=== PATIENT | male | born 1950 | race Two or more races ===

== ENCOUNTER 2025-04-26 19:59 | Emergency (ER) | payer OTHER, MEDICAID, SELFPAY ==
[2025-04-26 21:04] VITALS: BP 175/81; PULSE 65; RESP 20; TEMP 36.8; O2SAT 96; BMI 44.4
--- NOTE | 2025-04-26 21:04 | XR_ITS ---
Examination: CT brain head without contrast. 2-D sagittal coronal reconstructions Date and time of exam: April 26, 2025, 2115 hours, comparison August 31, 2006 INDICATIONS: High blood pressure head pain today CTDI: vol (mGy): 56.2 DLP: (mGycm): 1210 Technique: Multiple CT axial sections of the brain have been obtained, 5 mm slice thickness. Contrast has not been administered. 2-D sagittal, coronal reconstructions have been obtained Low dose protocols were performed. One or more of the following dose reduction techniques were used; automated exposure control, adjustment of the mA and/or KV according to patient size, use of iterative reconstruction technique. Findings: No significant ventricular enlargement. Intra-axial or extra-axial hemorrhage density is not seen. No mass effect or midline shift Basal cisterns are not remarkable. Fourth ventricle is midline. Cranial vault intact. Bilateral chronic mastoiditis Right otitis externa Left otitis media Impression: Negative for acute hemorrhage, mass effect or midline shift Bilateral chronic mastoiditis Left otitis media
--- NOTE | 2025-04-26 21:04 | EKG_ITS ---
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
--- NOTE | 2025-04-26 21:05 | PD.EDRME ---
Rapid Medical Screening Exam RME Arrival date/time: 04/26/25 19:59 This is a case of 74-year-old male with history of hypertension came in in the emergency room due to high BP at home ranging 200/120 with headache and tinnitus worsening of the symptoms this patient decided to sought consult in the emergency room Chief Complaint: General Adult/Misc Complain Time Seen by Provider: 04/26/25 20:28 Vital signs: Vital Signs Temperature 98.2 F 04/26/25 21:04 Pulse Rate 65 04/26/25 21:04 Respiratory Rate 20 04/26/25 21:04 Blood Pressure 175/81 H 04/26/25 21:04 Pulse Oximetry (%) 96 04/26/25 21:04 Oxygen Delivery Method Room Air 04/26/25 21:04 Exam: Heart normal rate regular rhythm no murmur clear breath sound neurological exam is normal awake alert oriented x 4 no focal deficit GCS 15/15 steady gait Clinical Impression: Uncontrolled hypertension tinnitus headache
--- NOTE | 2025-04-26 21:18 | PC.NURSE ---
CALLED FOR MEDS NA
[2025-04-26 21:24] VITALS: BP 194/90; PULSE 65
[2025-04-26 21:49] LABS: Basophils # (Auto) 0.0 Thou/mm3 (0.0-0.2); Basophils % (Auto) 1 % (0-2.5); Eosinophils # (Auto) 0.1 Thou/mm3 (0.0-0.5); Eosinophils % (Auto) 3 % (0-10); Hematocrit 41.6 % (41.0-53.0); Hemoglobin 13.4 g/dL (13.5-16.0); Immature Granulocytes Auto 0.01 Thou/mm3 (0.00-0.00); Lymphocytes # (Auto) 1.4 Thou/mm3 (1.0-4.8); Lymphocytes % (Auto) 26 % (10-50); Mean Corpuscular HGB Conc 32.2 g/dl (31.0-37.0); Mean Corpuscular Hemoglobin 30.7 pg (25.0-35.0); Mean Corpuscular Volume 95 fL (80-100); Monocytes # (Auto) 0.4 Thou/mm3 (0.0-0.8); Monocytes % (Auto) 7 % (0-12); Neutrophils # (Auto) 3.6 Thou/mm3 (1.8-7.7); Neutrophils % (Auto) 64 % (37-80); Nucleated Red Blood Cell # 0.00 Thou/mm3 (0.00-0.00); Nucleated Red Blood Cell % 0 /100 WBC (0); Platelet Count 125 Thou/mm3 (140-440); RDW Standard Deviation 48.9 fL (35.1-43.9); Red Blood Count 4.37 Miln/mm3 (4.50-5.90); White Blood Count 5.6 Thou/mm3 (3.8-10.6)
[2025-04-26 21:58] LABS: Collection Type, Urine Voided
[2025-04-26 22:03] LABS: Bilirubin,Urine Negative (Negative); Blood,Urine Negative (Negative); Clarity,Urine Clear (Clear/Hazy); Color,Urine Lt-Yellow (Lt Yel-Yel); Glucose, Urine 2+ (Negative); Ketones,Urine Negative (Negative); Leukocyte Esterase,Urine Negative (Negative); Nitrite,Urine Negative (Negative); PH,Urine 6.5 (5.0-7.0); Protein,Urine 2+ (Neg - Trace); RBC,Urine 2 /hpf (0-3); Specific Gravity,Urine 1.022 (1.001-1.035); Squamous Epithelial Cell,Urine < 1 /hpf (0-5); Urobilinogen,Urine Negative mg/dL (0.0-1.0); WBC,Urine 1 /hpf (0-5)
[2025-04-26 22:04] LABS: Alanine Aminotransferase 17 U/L (10-49); Albumin, Serum 4.7 gm/dL (3.4-4.8); Albumin/Globulin Ratio 2.0 (1.2-2.2); Alkaline Phosphatase 144 U/L (46-116); Anion Gap 8 (7-16); Aspartate Amino Transferase 19 U/L (0-34); BUN/Creatinine Ratio 16 Ratio (12-20); Bilirubin,Total 0.4 mg/dL (0.3-1.2); Blood Urea Nitrogen 18 mg/dL (9-23); Calcium 10.0 mg/dL (8.3-10.6); Calcium (Corrected) 10.0 mg/dL (8.5-10.1); Carbon Dioxide 29.6 mMol/L (20.0-31.0); Chloride 105 mMol/L (98-107); Creatinine (Component) 1.1 mg/dL (0.6-1.3); Estimated Creatinine Clearance 68.8 mL/min (>60); Globulin 2.3 gm/dL (2.3-3.5); Glucose 188 mg/dL (74-106); Osmolality,Calculated 291 (275-295); Potassium 4.5 mMol/L (3.4-5.1); Sodium 143 mMol/L (136-145); Total Protein 7.0 gm/dL (5.7-8.2); Troponin I 0.022 ng/mL (0.0-0.045); eGFR > 60 See Note
[2025-04-26 22:25] VITALS: BP 170/77; PULSE 71; RESP 18; TEMP 36.7; O2SAT 96
--- NOTE | 2025-04-26 23:11 | EDNOTE_ITS ---
ED General RME/HPI General Chief complaint: General Adult/Misc Complain Stated complaint: HIGH BLOOD PRESSURE Time Seen by Provider: 04/26/25 20:28 Arrival date/time: 04/26/25 19:59 RME / HPI RME / HPI narrative: 04/26/25 19:59 CC: high blood pressure at home Patient is a 74-year-old male hyperlipidemia, hypertension, diabetes mellitus type 2 on Ozempic who presented to the emergency room via private vehicle with a chief complaint of systolic blood pressure of 200. Patient denied vision changes. Patient denied global events. Patient denied sick contacts. Recent visit to his primary doctor for ear lavage. Denied fall or trauma to head. Lisinopril 40 mg once daily. Patient did mention some external ear pain several days ago. Related Data Previous Rx's ?Medication ?Instructions ?Recorded amoxicillin 875 mg-potassium 1 tab PO BID Otitis Media 5 days 04/26/25 clavulanate 125 mg tablet #10 tabs Allergies Allergy/AdvReac Type Severity Reaction Status Date / Time No Known Allergies Allergy Verified 04/26/25 20:01 Review of Systems Review of Systems Narrative Review of Systems: General appearance: NO weight change, NO fatigue, NO weakness, NO fever, NO chills, NO night sweats, No cough Skin: NO rash, NO itching, NO sores, NO moles HEENT: NO Trauma, NO nausea, NO vomiting, NO visual changes, NO blurry vision, NO double vision, NO tinnitus, NO vertigo, NO ear discharge, NO rhinorrhea, NO stuffiness, NO sneezing, NO allergy, NO epistaxis. NO Hoarseness, NO sore throat, NO swollen neck.*head several days ago w/ some external ear pain. Cardiac: NO Palpitations, NO dyspnea on exertion, NO orthopnea, NO paroxysmal nocturnal dyspnea, NO edema Respiratory: NO Shortness of Breath, NO Wheezing, NO Cough, NO Sputum, NO hemoptysis GI:NO appetite, NO nausea, NO vomiting, NO dysphagia, NO changes in bowel frequency, NO stool color, NO diarrhea, NO constipation, NO hemetemesis, NO hemorrhoids, NO melena, NO hematechezia, NO abdominal pain, NO jaundice Renal: NO frequency, NO hesitancy, NO urgency, NO hematuria, NO nocturia, NO incontinence MSK: NO muscle weakness, NO gout, NO arthritis, NO muscle stiffness Neuro: NO headaches, NO tremors, NO weakness, NO paralysis, NO seizures, NO loss of consciousness, NO numbness. Hem: NO anemia, NO easy bruising/bleeding, NO petechiae, NO purpura Endo: NO heat/cold intolerance, NO excessive sweating, NO polyuria, NO polydipsia, NO polyphagia, NO thyroid problems, NO diabetes Pysch: NO mood, NO anxiety, NO depression ED Exam Narrative Physical exam: General Appearance: Alert & Oriented X3, well-nourished male who is lying in bed in no acute distress HEENT: Skull symmetrical and atraumatic. Conjunctivae pin and moist. Pupils equal, round, reactive to light and accommodation (PERRL). External ear without lesion or discharge. Straight, nares patient, mucosa pink, no discharge. Cardio: Normal Rate and Rhythm with S1 and S2 heart sounds. No murmurs or extra heart sounds auscultated. No bruits on carotid auscultation. No peripheral edema or cyanosis. Lungs: Symmetric with good expansion. Chest and back non-tender. Breath sounds vesicular without crackles, wheezing or rhonchi Abdomen: Non-tender, Non-distended, Normal Reactive Bowel Sounds Neuro: Alert, cooperative, oriented to person, place, and time. Speech clear. CN grossly intact. Upper motor strength 5/5 and Lower motor strength 5/5. Sensation intact. Course Course Course Narrative: CBC CMP Tropnoin EKG UA Quality Measures none Orders Category Date Time Status EKG (ED ONLY) *Do not use* NOW Care 04/26/25 21:[address] head/brain wo con Stat Exams 04/26/25 21:04 Completed EKG (ED Only) Stat Exams 04/26/25 21:04 Draft CBC Stat Lab 04/26/25 21:28 Completed CMP [Comprehensive Metabolic Panel] Stat Lab 04/26/25 21:28 Completed Troponin I Stat Lab 04/26/25 21:28 Completed Urinalysis Stat Lab 04/26/25 21:43 Completed cloNIDine HCL [Catapres] Med 04/26/25 21:04 Discontinued 0.2 mg PO X1 ONE Vital Signs Vital signs: Vital Signs Temperature 98.2 F 04/26/25 21:04 Pulse Rate 65 04/26/25 21:04 Respiratory Rate 20 04/26/25 21:04 Blood Pressure 175/81 H 04/26/25 21:04 Pulse Oximetry (%) 96 04/26/25 21:04 Oxygen Delivery Method Room Air 04/26/25 21:04 Discharge Plan Plan Patient Disposition: HOME (Self Care) Patient condition on transfer: Stable Health Concerns: Instructions: -You have been diagnosed with uncontrolled hypertension. Please take your anti- hypertensive medication as scheduled. Please follow up with your primary care provider and have him adjust your Lisinopril as needed. -Follow up with your primary doctor within one week of being discharged form emergency room. -You have a left ear infection as noted on your CT head. Please take Amoxicillin-Clavulanate 875 mg for the next 5 days. -Please follow up with your primary care provider within one week of discharge -If your symptoms worsen,please seek immediate medical attention and return to your nearest emergency room -If you do not have a primary care provider, you may follow up at the [facility] at [address] [place] [address] [address], [place] [address], Prescriptions/Referrals Prescriptions/Med Rec: New amoxicillin-pot clavulanate 875-125 mg tablet 1 tab PO BID 5 Days Qty: 10 0RF Problem List Clinical Impression: Hypertension, uncontrolled, Otitis media Patient/Caregiver Discharge Instructions Education Materials: ED High Blood Pressure ..., ED Otitis Media Antibiotic ... Print Language: Egyptian Stand Alone Forms: [employer] Award Info., Patient Portal Info Letter MDM Chronic Illness/Social Conditions Explain: HTN HLD Diabetes Mellitus Type 2 Labs Lab(s) Interpretation(s): No Leukocytotsis. Anemia. electrolytes within normal limits. No SUMAN noted. Imaging Imaging Interpretation(s): CT head negative for acute bleeding. Bialteral chronic mastoiditis. left otitis media. Medication Administration(s) none Medication Administration History Discontinued Medications Clonidine (Clonidine Hcl 0.1 Mg Tablet) 0.2 mg PO X1 ONE Stop: 04/26/25 21:05 Last Admin: 04/26/25 21:24 Dose: 0.2 mg Documented By: CHARLES same as above Diagnosis Differential Diagnosis ED Complaint MDM: uncontrolled high blood pressure vs otitis media vs ACS Diagnoses ruled out and/or further discussions: Patient is 74-year-old male with a past medical history of hyperlipidemia, hypertension, diabetes mellitus type 2 who presented with uncontrolled hypertension. Uncontrolled hypertension upon arrival of 194/90 was reduced by 15% and systolic blood pressure 170 after clonidine was administered. CT head negative, no acute hemorrhage or mass effect. Bilateral chronic mastoiditis noted. Left otitis media. Patient was prescribed amoxicillin clodronate for [address] elevations noted on EKG. Troponin within normal limits. Denies chest pain. No leukocytosis mild anemia electrolytes within normal limits. #Uncontrolled HTN #Left otitis media - The patient's plan was discussed with attending Dr. Jose Stone MD PGY2 Internal Medicine
--- NOTE | 2025-04-26 23:25 | PC.NURSE ---
has seen pt. clayton resting quietly, family at bedside. awaiting orders
[2025-04-26 23:26] VITALS: BP 170/77; PULSE 60; RESP 19; O2SAT 97
== END 2025-04-26 23:27 | disposition home or self-care (01) ==
LOC: SERX 23:35
PROVIDERS: Nurse Practitioner Family; Emergency Provider Emergency Medicine
DX: I10 Essential (primary) hypertension (principal); H66.92 Otitis media, unspecified, left ear; I49.3 Ventricular premature depolarization
CPT/HCPCS: 36415; 70450; 80053; 81001; 84484; 85025; 93005; 99283; A9270

== ENCOUNTER 2025-05-04 14:04 | Inpatient (IN) | payer OTHER, MEDICAID, MEDICARE, SELFPAY ==
--- NOTE | 2025-05-04 14:25 | EKG_ITS ---
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
[2025-05-04 14:47] VITALS: BP 153/75; PULSE 80; RESP 19; TEMP 37.2; O2SAT 99
--- NOTE | 2025-05-04 14:59 | PD.EDCHEST ---
ED Chest Pain RME/HPI General Chief Complaint: General Adult/Misc Complain Stated Complaint: HIGH BP, TIGHTNESS IN NECK/CHEST Time Seen by Provider: 05/04/25 14:29 Arrival date/time: 05/04/25 14:04 Limitations: no limitations RME / HPI RME / HPI narrative: DR. JACY GALLEGO ED EVALUATION: 74-year-old male presents to the Emergency Department with chest pain and sore throat. He describes the chest pain as a pressure-like sensation. No fever, chills, nausea, vomiting, or shortness of breath reported. No other complaints. Past medical history includes hyperlipidemia, hypertension, and type 2 diabetes mellitus, for which he is on Ozempic. He also takes clopidogrel. He reports a history of an artery that was previously blocked and opened during a heart procedure in [place]. Related Data Home Medications ?Medication ?Instructions ?Recorded ?Confirmed amlodipine 10 mg tablet 10 mg PO .od 05/04/25 05/04/25 aspirin 81 mg tablet,delayed 81 mg PO QDAY 05/04/25 05/04/25 release atorvastatin 40 mg tablet 40 mg PO QDAY 05/04/25 05/04/25 clopidogrel 75 mg tablet 75 mg PO QDAY 05/04/25 05/04/25 furosemide 20 mg tablet 20 mg PO QDAY 05/04/25 05/04/25 lisinopril 40 mg tablet 40 mg PO QDAY 05/04/25 05/04/25 Allergies Allergy/AdvReac Type Severity Reaction Status Date / Time No Known Allergies Allergy Verified 05/04/25 14:07 Review of Systems Review of Systems Systems Reviewed: All systems reviewed, normal except as documented Past Medical History Past Medical History CARDIAC: Positive Hypertension Social History SMOKING STATUS: Never smoker SUBSTANCE USE: does not use ALCOHOL: Never ED Exam General Limitations: Present no limitations General appearance: Present alert and in no apparent distress Head Head exam: Present atraumatic, normocephalic and normal inspection Eye Eye exam: Present normal appearance, PERRL and EOMI ENT ENT exam: Present normal exam, normal oropharynx and mucous membranes moist Neck Neck exam: Present normal inspection, full ROM and trachea midline Chest Chest inspection: Present normal inspection and symmetric chest wall rise Respiratory Respiratory exam: Present normal lung sounds bilaterally Cardiovascular Cardiovascular exam: Present regular rate, normal rhythm and normal heart sounds Abdominal Exam Abdominal exam: Present soft; Absent distention, tenderness, guarding or rebound Extremities Exam Extremities exam: Present normal inspection and full ROM Neurological Exam Neurological exam: Present alert, oriented X3 and other (No focal neurodeficits) Psychiatric Psychiatric exam: Present normal affect and normal mood Skin Skin exam: Present warm, dry, intact and normal color Course Quality Measures none Orders Category Date Time Status Admit to Inpatient Status Routine Admission 05/04/25 17:37 Active Patient Condition Routine Admission 05/04/25 17:37 Ordered Activity as Tolerated Routine Care 05/04/25 17:40 Ordered Continuous Pulse Oximetry NOW Care 05/04/25 17:37 Active EKG (ED ONLY) *Do not use* NOW Care 05/04/25 14:25 Completed NPO after Midnight ONCE Care 05/04/25 17:49 Active Notify provider NEEDED Care 05/04/25 17:37 Active Notify provider NOW Care 05/04/25 16:22 Active Obtain weight daily Care 05/04/25 17:40 Active Strict Intake and Output Routine Care 05/04/25 17:39 Ordered Consult to Cardiology Stat Cons 05/04/25 17:30 Ordered Diet Cardiac Diet 05/04/25 Dinner Completed Diet NPO after Midnight Diet 05/05/25 00:01 Active CA echo doppler complete Stat Exams 05/04/25 17:28 Ordered CXR [XR chest 1V] Stat Exams 05/04/25 15:25 Completed EKG (ED Only) Stat Exams 05/04/25 14:25 Draft BNP [B-Type Natriuretic Peptide] Stat Lab 05/04/25 15:00 Completed CBC AM DRAW Lab 05/05/25 04:38 Completed CBC AM DRAW Lab 05/06/25 05:00 Ordered CBC AM DRAW Lab 05/07/25 05:00 Ordered CBC Stat Lab 05/04/25 15:00 Completed CMP [Comprehensive Metabolic Panel] Stat Lab 05/04/25 15:00 Completed Comprehensive Metabolic Panel AM DRAW Lab 05/05/25 04:38 Completed Lipase Stat Lab 05/04/25 15:00 Completed Lipid Panel AM DRAW Lab 05/05/25 04:38 Completed Lipid Panel AM DRAW Lab 05/06/25 05:00 Ordered Lipid Panel AM DRAW Lab 05/07/25 05:00 Ordered Magnesium AM DRAW Lab 05/05/25 04:38 Completed Magnesium AM DRAW Lab 05/06/25 05:00 Ordered Magnesium AM DRAW Lab 05/07/25 05:00 Ordered PTT [Partial Thromboplastin Time] Stat Lab 05/04/25 15:00 Completed Partial Thromboplastin Time AM DRAW Lab 05/06/25 05:00 Ordered Phosphorous AM DRAW Lab 05/05/25 04:38 Completed Phosphorous AM DRAW Lab 05/06/25 05:00 Ordered Phosphorous AM DRAW Lab 05/07/25 05:00 Ordered Prothrombin Time with INR AM DRAW Lab 05/06/25 05:00 Ordered Thyroid Stimulating Hormone AM DRAW Lab 05/05/25 04:38 Completed Troponin I Q6H Lab 05/04/25 23:45 Completed Troponin I Stat Lab 05/04/25 15:00 Completed Troponin I Stat Lab 05/04/25 17:49 Completed Acetaminophen Tab [Tylenol Tab] Med 05/04/25 17:37 Active 650 mg PO Q6H PRN Acetaminophen Tab [Tylenol Tab] Med 05/04/25 17:37 Active 650 mg PO Q6H PRN Aspirin Chew Med 05/04/25 17:31 Discontinued 243 mg PO X1 ONE Aspirin [Ecotrin] Med 05/04/25 15:25 Discontinued 81 mg PO X1 ONE Atorvastatin Calcium [Lipitor] Med 05/04/25 17:36 Discontinued 80 mg PO X1 ONE Clopidogrel [Plavix] Med 05/04/25 17:28 Discontinued 300 mg PO X1 ONE HYDROcodone/APAP 10/325 [[place] 10/325] Med 05/04/25 17:37 Hold 1 tab PO Q4H PRN Heparin Inj Med 05/04/25 17:15 Discontinued 4,000 unit IV X1 ONE Heparin/D5w 25K 250 ML Ivpb [Heparin in D5w Ivpb] Med 05/04/25 17:00 Active 25,000 unit in 250 ml IV 8.351 units/kg/hr Metoprolol Succinate Xl [Toprol Xl] Med 05/04/25 17:35 Discontinued 25 mg PO X1 ONE Nitroglycerin [Nitrostat 1/150] Med 05/04/25 17:43 Active 0.4 mg SL Q5MIN PRN Code Status Routine Oth 05/04/25 17:37 Ordered O2 [Oxygen Delivery] PRN RT 05/04/25 17:43 Active Vital Signs Vital signs: Vital Signs Temperature 98.9 F 05/04/25 14:47 Pulse Rate 80 05/04/25 14:47 Respiratory Rate 19 05/04/25 14:47 Blood Pressure 153/75 H 05/04/25 14:47 Pulse Oximetry (%) 99 05/04/25 14:47 Oxygen Delivery Method Room Air 05/04/25 14:47 Chest Pain MDM Narrative MDM Narrative:: I, Michelle Leon, am scribing for and in the presence of Dr. Pike. 74-year-old male with pressure-like chest pain and sore throat with cardiac history including prior coronary intervention. Vital signs and exam as listed. Concern for ACS arrhythmia electrolyte abnormality viral syndrome pneumonia heart failure among others. Ordered labs EKG chest x-ray. Provided patient with medication for symptom relief. My interpretation: EKG performed at 1433 hours, sinus rhythm, rate 72, ST depression in lead 2, AVF, and V2-V6, not a STEMI 1524: Discussed test HPI, PMHx, lab, radiology results and/or management with real estate broker associate Dr. Joseph. He states the patient is not a cardiac alert. 4:20p called on-call real estate broker associate Dr. Temple to let her know that patient's troponin is 0.51. Agrees with starting heparin will consult. 1635: Discussed test HPI, PMHx, lab, radiology results and/or management with resident working with the hospitalist. Will admit for further evaluation and management. Accepts patient for admission. Updated patient, in agreement with treatment plan. Total critical care time: Approximately?36?minutes Due to a high probability of clinically significant, life threatening deterioration, the patient required my highest level of preparedness to intervene emergently and I personally spent this critical care time directly and personally managing the patient. This critical care time included obtaining a history; examining the patient; pulse oximetry; ordering and review of studies; arranging urgent treatment with development of a management plan; evaluation of patient's response to treatment; frequent reassessment; and, discussions with other providers. This critical care time was performed to assess and manage the high probability of imminent, life-threatening deterioration that could result in multi-organ failure. It was exclusive of separately billable procedures and treating other patients and teaching time. Please see MDM section and the rest of the note for further information on patient assessment and treatment. Patient data External records reviewed:: [facility] previous records Clinical information provided by:: patient and spouse Social determinants that could affect healthcare access:: none Patient has the following chronic illnesses:: Past medical history includes hyperlipidemia, hypertension, and type 2 diabetes mellitus, for which he is on Ozempic. He also takes clopidogrel. He reports a history of an artery that was previously blocked and opened during a heart procedure in [place]. How is presenting disease/condition affected by chronic disease/condition?: exacerbated by Evaluation data The following diagnostics were reviewed and interpreted by me:: lab results, radiology exam(s) and EKG tracing(s) (My interpretation: EKG performed at 1433 hours, sinus rhythm, rate 72, ST depression in lead 2, AVF, and V2-V6, not a STEMI) Lab and/or radiology exams considered but not ordered:: none Interpretation Summary: See MDM narrative above. RADIOLOGY Procedure(s): XR chest 1V Accession Number(s): [id number] cc: Neil Rainey MD; Mikael Stubbs MD; Sara Pike MD~ EXAMINATION: AP chest single view TECHNIQUE: AP portable semiupright chest single view Date and time: May 04, 2025, 1537 hours, comparison September 28, 2011. INDICATIONS: Shortness of breath chest pain today. FINDINGS: Mild to moderate enlargement cardiac contour. Mild vascular congestion No rufus pulmonary edema No lobar pneumonia 7 mm pulmonary nodule in the left midlung IMPRESSION: Mild to moderate enlargement cardiac contour Mild vascular congestion Recommend AP lordotic chest to assess 7 mm pulmonary nodule in the left midline Dictated By: Mikael Stubbs MD Medications / Prescriptions Medications or Prescriptions considered but not ordered:: none Medication administrations:: Medication Administration History Acetaminophen (Acetaminophen 325 Mg Tablet) 650 mg PO Q6H PRN PRN Reason: Fever >101.5 Stop: 06/03/25 17:36 Acetaminophen (Acetaminophen 325 Mg Tablet) 650 mg PO Q6H PRN PRN Reason: PAIN SCALE 1-3 (mild Stop: 06/03/25 17:36 Hydrocodone Bitart/Acetaminophen (Hydrocodone/Apap 10/325 Tab) 1 tab PO Q4H PRN On Hold: 05/04/25 18:11 PRN Reason: PAIN SCALE 4-10(Mod-Sev Stop: 05/09/25 17:36 Hydrocodone Bitart/Acetaminophen (Hydrocodone/Apap 5/325 Tablet) 1 tab PO Q6HR PRN PRN Reason: PAIN SCALE 4-10(Mod-Sev Stop: 05/09/25 18:10 Aspirin (Aspirin Ec 81 Mg Tabec) 81 mg PO QDAY EAN Stop: 06/04/25 08:59 Last Admin: 05/05/25 07:56 Dose: 81 mg Documented By: CP Clopidogrel Bisulfate (Clopidogrel Bisulfate 75 Mg Tablet) 75 mg PO QDAY [facility] Stop: 06/04/25 08:59 Last Admin: 05/05/25 07:56 Dose: 75 mg Documented By: LUIS Dextrose (Dextrose 50%-Water Inj 50 Ml Syringe) 25 ml IV Q15MIN PRN PRN Reason: BG 50-70 responsive npo pt Stop: 06/03/25 20:47 Dextrose (Dextrose 50%-Water Inj 50 Ml Syringe) 50 ml IV Q15MIN PRN PRN Reason: BG <50 OR BG <70 & pt unresponsive Stop: 06/03/25 20:47 Glucagon (Glucagon Inj 1 Mg Vial) 1 mg IM Q15MIN PRN PRN Reason: BG <70, and no IV access Heparin Sodium/Dextrose (Heparin In D5w Ivpb) 25,000 unit in 250 mls @ 10 mls/hr IV .Q24H [facility]; Protocol Stop: 05/18/25 16:59 Last Titration: 05/05/25 01:14 Dose: 8.35 units/kg/hr, 10 mls/hr Documented By: RC Co-signed By: WO Admin: 05/04/25 17:36 Dose: 8.351 units/kg/hr, 10 mls/hr Documented By: TM Co-signed By: SM Insulin Human Lispro (Insulin Lispro (Admelog) 1 Unit/0.01 Ml Unit) 0 unit SC AC [facility]; Protocol Stop: 06/04/25 07:29 Last Admin: 05/05/25 07:55 Dose: 2 unit Documented By: LUIS Co-signed By: Nitroglycerin (Nitroglycerin 0.4 Mg Subl Btl #25) 0.4 mg SL Q5MIN PRN PRN Reason: CHEST PAIN Discontinued Medications Aspirin (Aspirin Ec 81 Mg Tabec) 81 mg PO X1 ONE Stop: 05/04/25 15:26 Last Admin: 05/04/25 15:40 Dose: 81 mg Documented By: TM Aspirin (Aspirin 81 Mg Chew) 243 mg PO X1 ONE Stop: 05/04/25 17:32 Last Admin: 05/04/25 18:32 Dose: Not Given Documented By: TM Non-Admin Reason: Patient Refused Aspirin (Aspirin Ec 81 Mg Tabec) 81 mg PO QDAY EAN Stop: 06/04/25 08:59 Atorvastatin Calcium (Atorvastatin Calcium 20 Mg Tablet) 80 mg PO X1 ONE Stop: 05/04/25 17:37 Last Admin: 05/04/25 18:32 Dose: Not Given Documented By: TM Non-Admin Reason: Patient Refused Clopidogrel Bisulfate (Clopidogrel Bisulfate 75 Mg Tablet) 300 mg PO X1 ONE Stop: 05/04/25 17:29 Last Admin: 05/04/25 18:32 Dose: Not Given Documented By: TM Non-Admin Reason: Patient Refused Heparin Sodium (Porcine) (Heparin Sod Inj 5000 Unit/Ml Vial) 4,000 unit IV X1 ONE; Protocol Stop: 05/04/25 17:16 Last Admin: 05/04/25 17:35 Dose: 4,000 unit Documented By: RACIEL Co-signed By: ESTIVEN Metoprolol Succinate (Metoprolol Succinate Xl 25 Mg Tabcr) 25 mg PO X1 ONE Stop: 05/04/25 17:36 Last Admin: 05/04/25 18:32 Dose: Not Given Documented By: TM Non-Admin Reason: Patient Refused see above Consultations Consultation(s) initiated? (list below): Yes Consultation #1 (Physician, Specialty, Details): Discussed test HPI, PMHx, lab, radiology results and/or management with real estate broker associate Dr. Joseph. He states the patient is not a cardiac alert. Time: 15:24 Consultation #2 (Physician, Specialty, Details): Discussed test HPI, PMHx, lab, radiology results and/or management with resident working with the hospitalist. Will admit for further evaluation and management. Accepts patient for admission. Time: 16:35 Diagnosis Chest Pain Differential Diagnosis: other (ACS, GERD, and viral pharyngitis) Most likely diagnosis given after review of the tests above:: NSTEMI Chest pain Admission Indicated Admission indicated?: indicated Admission Request Was there a request for admission?: Yes Admission Attestation Admission request attestation: Discussed case with [] from Hospitalist service regarding admission. Discussed patients ED course, exam findings, labs, and radiology results. The Hospitalist [agrees,declines] to accept the patient for admission. Disposition Plan Disposition Plan: Admit Discharge Plan Plan Patient Disposition: Admit Acute Care w/in Hospital Problem List Clinical Impression: NSTEMI (non-ST elevation myocardial infarction), Chest pain
[2025-05-04 15:01] VITALS: BMI 35.8
--- NOTE | 2025-05-04 15:25 | XR_ITS ---
EXAMINATION: AP chest single view TECHNIQUE: AP portable semiupright chest single view Date and time: May 04, 2025, 1537 hours, comparison September 28, 2011. INDICATIONS: Shortness of breath chest pain today. FINDINGS: Mild to moderate enlargement cardiac contour. Mild vascular congestion No rufus pulmonary edema No lobar pneumonia 7 mm pulmonary nodule in the left midlung IMPRESSION: Mild to moderate enlargement cardiac contour Mild vascular congestion Recommend AP lordotic chest to assess 7 mm pulmonary nodule in the left midline
[2025-05-04] MEDS: ASPIRIN EC 81 MG TABEC PO (15:40)
[2025-05-04 15:53] LABS: Basophils # (Auto) 0.0 Thou/mm3 (0.0-0.2); Basophils % (Auto) 1 % (0-2.5); Eosinophils # (Auto) 0.1 Thou/mm3 (0.0-0.5); Eosinophils % (Auto) 2 % (0-10); Hematocrit 40.4 % (41.0-53.0); Hemoglobin 13.2 g/dL (13.5-16.0); Immature Granulocytes Auto 0.02 Thou/mm3 (0.00-0.00); Lymphocytes # (Auto) 1.2 Thou/mm3 (1.0-4.8); Lymphocytes % (Auto) 18 % (10-50); Mean Corpuscular HGB Conc 32.7 g/dl (31.0-37.0); Mean Corpuscular Hemoglobin 30.3 pg (25.0-35.0); Mean Corpuscular Volume 93 fL (80-100); Monocytes # (Auto) 0.4 Thou/mm3 (0.0-0.8); Monocytes % (Auto) 6 % (0-12); Neutrophils # (Auto) 4.6 Thou/mm3 (1.8-7.7); Neutrophils % (Auto) 73 % (37-80); Nucleated Red Blood Cell # 0.00 Thou/mm3 (0.00-0.00); Nucleated Red Blood Cell % 0 /100 WBC (0); Platelet Count 112 Thou/mm3 (140-440); RDW Standard Deviation 47.8 fL (35.1-43.9); Red Blood Count 4.36 Miln/mm3 (4.50-5.90); White Blood Count 6.3 Thou/mm3 (3.8-10.6)
[2025-05-04 16:12] VITALS: BP 154/65; PULSE 78; RESP 14; TEMP 36.3; O2SAT 98
[2025-05-04 16:17] LABS: B-Type Natriuretic Peptide 173 pg/mL (0-100)
[2025-05-04 16:19] LABS: Alanine Aminotransferase 17 U/L (10-49); Albumin, Serum 4.9 gm/dL (3.4-4.8); Albumin/Globulin Ratio 2.2 (1.2-2.2); Alkaline Phosphatase 154 U/L (46-116); Anion Gap 9 (7-16); Aspartate Amino Transferase 25 U/L (0-34); BUN/Creatinine Ratio 15 Ratio (12-20); Bilirubin,Total 0.5 mg/dL (0.3-1.2); Blood Urea Nitrogen 17 mg/dL (9-23); Calcium 9.7 mg/dL (8.3-10.6); Calcium (Corrected) 9.7 mg/dL (8.5-10.1); Carbon Dioxide 27.6 mMol/L (20.0-31.0); Chloride 103 mMol/L (98-107); Creatinine (Component) 1.1 mg/dL (0.6-1.3); Estimated Creatinine Clearance 78.7 mL/min (>60); Globulin 2.2 gm/dL (2.3-3.5); Glucose 252 mg/dL (74-106); Lipase 40 U/L (12-53); Osmolality,Calculated 289 (275-295); Potassium 4.5 mMol/L (3.4-5.1); Sodium 140 mMol/L (136-145); Total Protein 7.1 gm/dL (5.7-8.2); eGFR > 60 See Note
[2025-05-04 16:21] LABS: Troponin I 0.510 ng/mL (0.0-0.045)
[2025-05-04 16:58] LABS: Partial Thromboplastin Time 30.7 Seconds (22.0-36.0)
--- NOTE | 2025-05-04 17:28 | ECHO_ITS ---
Patient Info Name: Murali Park Age: 74 years : 1950 Gender: Male Ht: 183 cm Wt: 120 kg BSA: 2.51 m2 BP: 130 / 70 mmHg HR: 64 bpm Exam Date: 05/05/2025 8:47 AM Admit Date: 05/04/2025 Site: 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 Material: Lisa Vasquez Ordering Physician: Joann Beyer Study Info Indications NSTEMI - Primary Location: S2NX Left Ventricular Outflow Tract Name Value Normal LVOT 2D LVOT Diameter 1.6 cm LVOT Doppler LVOT Peak Velocity 101 cm/s LVOT Mean Gradient 2 mmHg LVOT VTI 23 cm LVOT VTI/AV VTI Ratio 0.8 LVOT Stroke Volume 47 ml Pulmonic Valve Name Value Normal PV Doppler PV Peak Velocity 99 cm/s Mitral Valve Name Value Normal MV Doppler MV Decel Power 321 cm/s2 MV PHT 48 ms MV Area (PHT) 4.6 cm2 4.0-5.0 MV Diastolic Function MV E Peak Velocity 53 cm/s MV A Peak Velocity 70 cm/s MV E/A 0.8 MV Annular TDI MV Septal e' Velocity 3.9 cm/s MV E/e' (Septal) 13.5 MV Lateral e' Velocity 5.0 cm/s MV E/e' (Lateral) 10.6 MV e' Average 4.46 cm/s MV E/e' (Average) 12.1 Tricuspid Valve Name Value Normal Estimated PAP/RSVP RA Pressure 8 mmHg <=5 TV Annular TDI TV Lateral Yamini s' Velocity 14.1 cm/s >=9.5 Aortic Valve Name Value Normal AV 2D/MM AV Cusp Sep (MM) 1.8 cm AV Doppler AV Peak Velocity 144 cm/s AV Mean Gradient 4 mmHg AV VTI 30 cm AV Area (Cont Eq VTI) 1.6 cm2 >=3.0 AV Area (Cont Eq Peter) 1.4 cm2 AV DI (Peter) 0.70 AV Regurgitation 2D LVOT Area 2.0 cm2 Ventricles Name Value Normal LV Dimensions 2D/MM IVS Diastolic Thickness (2D) 1.1 cm 0.6-1.0 LVID Diastole (2D) 5.2 cm 4.2-5.8 LVIW Diastolic Thickness (2D) 1.1 cm 0.6-1.0 LVID Systole (2D) 4.9 cm 2.5-4.0 LVOT Diameter 1.6 cm LV Mass (2D Cubed) 215.81 g 88.00-224.00 LV Mass Index (2D Cubed) 86 g/m2 49-115 Relative Wall Thickness (2D) 0.43 <=0.42 IVS/LVIW Diastolic Thickness (2D) 0.95 0.00-1.50 LV Fractional Shortening/Ejection Fraction 2D/MM LV Fractional Shortening (2D) 20 % 25-43 LV EF (2D Eduardoichwade) 13 % RV Dimensions 2D/MM TV Lateral Yamini s' Velocity 14.1 cm/s >=9.5 Atria Name Value Normal LA Dimensions LA Volume (4C A-L) 73 ml LA Volume (BP A-L) 61 ml Left Ventricle Left ventricular chamber dimension is normal. Left ventricular systolic function is normal with visually estimated ejection fraction of 50-55%. There is mild concentric hypertrophy noted in the left ventricle. Left ventricular segmental wall motion is normal. There is grade I diastolic dysfunction in the left ventricle. Right Ventricle Right ventricular chamber dimension is normal. Right ventricular systolic function is normal. Left Atrium Left atrial chamber dimension is normal. Right Atrium Right atrial chamber dimension is normal. Aortic Valve The aortic valve is trileaflet. There is no aortic valve sclerosis. There is no aortic valve stenosis with a peak velocity of 144 cm/s, mean gradient of 4 mmHg, and aortic valve area of 1.6 cm2. There is no aortic valve regurgitation. Pulmonic Valve The pulmonic valve is normal. There is no pulmonic valve stenosis. There is no pulmonic regurgitation. Mitral Valve The mitral valve has normal leaflets. There is no mitral valve stenosis. There is trace mitral valve regurgitation. Tricuspid Valve The tricuspid valve leaflets are normal. There is no tricuspid valve stenosis. There is trace tricuspid valve regurgitation. Unable to estimate pulmonary artery systolic pressure due to inadequate tricuspid regurgitant envelope. Pericardium/Pleural The pericardium appears normal. There is trivial pericardial effusion with no tamponade. No pleural effusion visualized. Inferior Vena Cava Normal inferior vena cava with >50% collapse upon inspiration consistent with normal right atrial pressure, 8 mmHg. Aorta The aortic measurements are indexed to age and body surface area. The aortic root at the sinus of Valsalva is not well visualized. The prox ascending aorta is not well visualized. Summary 1. Left ventricle size is normal and systolic function is normal. Estimated ejection fraction is 50-55%. There is grade I diastolic dysfunction. 2. The right ventricle is not well visualized. 3. There is trace mitral valve regurgitation. 4. There is trace tricuspid valve regurgitation. 5. Normal IVC with estimated RA pressure 8 mmHg. 6. Right atrial not well visualized. Report Signatures Finalized by Carmen Joseph on 05/06/2025 07:47 AM
--- NOTE | 2025-05-04 17:34 | PD.RESPRO ---
Documentation for date of: 05/04/25 Subjective Subjective Interval history: 74-year-old male?with PMHx of CAD s/p stent 14yo, hyperlipidemia, hypertension, and type 2 diabetes mellitus, for which he is on Ozempic,?presented on 05/04/2025 with chest pain and tight feeling in his throat. He describes the chest pain as a pressure-like sensation, which radiates to bilateral shoulders. It had been going on all night long, and do he continues to be in discomfort, it has improved in intensity. Admits to exertional chest pain, and sleep apnea. Denies PND, fever, chills, nausea, vomiting, or shortness of breath reported. No other complaints.? He also takes clopidogrel. He reports a history of an artery that was previously blocked and opened during a heart procedure in [place]. ? ED course: VSS 154/65, HR 78, RR 14, T97.3, O2 98% in RA.? Labs showed WBC 6.3, Hgb 13.2, CMP glucose 152, ALP 154, troponin 0.00 22 which trended up to 0.510, and BNP 173.? EKG showed ST depression in?sinus rhythm, rate 72, ST depression in lead 2, AVF, and V2-V6? Workup initiated for cardiac versus noncardiac cause.?Press Tender [place], , consulted for elevated troponins who recommended starting heparin.? ? Allergies: None PMHx: Hypertension, T2DM, hypercholesterolemia, SILVIANO Meds: Metformin, clopidogrel, atorvastatin, pending med rec PSHx: Nose, throat surgery for SILVIANO FHx: sister had stroke SMOKING STATUS: Never smoker? SUBSTANCE USE: does not use? ALCOHOL: stopped 4-5mo ago? Exam Vital Signs Temp Pulse Resp BP Pulse Ox O2 Del Method 97.3 F 78 14 154/65 H 98 Room Air 05/04/25 16:12 05/04/25 16:12 05/04/25 16:12 05/04/25 16:12 05/04/25 16:12 05/04/25 16:12 Objective Labs 05/04/25 15:00 05/04/25 15:00 Labs: Laboratory Results - last 24 hr 05/04/25 15:00 WBC 6.3 RBC 4.36 L Hgb 13.2 L Hct 40.4 L MCV 93 MCH 30.3 MCHC 32.7 RDW Std Deviation 47.8 H Plt Count 112 L Neut % (Auto) 73 Lymph % (Auto) 18 [place] % (Auto) 6 Eos % (Auto) 2 Baso % (Auto) 1 Neut # (Auto) 4.6 Lymph # (Auto) 1.2 [place] # (Auto) 0.4 Eos # (Auto) 0.1 Baso # (Auto) 0.0 Immature Gran # (Auto) 0.02 H Absolute Nucleated RBC 0.00 Immature Gran % 0 Nucleated RBC % 0 APTT 30.7 Sodium 140 Potassium 4.5 Chloride 103 Carbon Dioxide 27.6 Anion Gap 9 BUN 17 Creatinine 1.1 Estim Creat Clear Calc 78.7 eGFR > 60 BUN/Creatinine Ratio 15 Glucose 252 H Calculated Osmolality 289 Calcium 9.7 Corrected Calcium 9.7 Total Bilirubin 0.5 AST 25 ALT 17 Alkaline Phosphatase 154 H Troponin I 0.510 H* B-Natriuretic Peptide 173 H Total Protein 7.1 Albumin 4.9 H Globulin 2.2 L Albumin/Globulin Ratio 2.2 Lipase 40 Quality Measures Quality Measures none Assessment & Plan Assessment Current Active Medications: Generic Name Dose Route Start Last Admin Trade Name Freq PRN Reason Stop Dose Admin Aspirin 243 mg 05/04/25 17:31 Aspirin 81 Mg Chew PO 05/04/25 17:32 X1 ONE Heparin Sodium/Dextrose 25,000 unit in 250 mls @ 10 mls/hr 05/04/25 17:00 Heparin In D5w Ivpb IV 05/18/25 16:59 .Q24H EAN Protocol 8.351 UNITS/KG/HR Plan Plan: - Cardiology, Dr Burnette consulted, appreciate recs - Started therapeutic anticoagulation with UFH per ACS protocol, 12u/kg/h, with IVB 4000u - Aspirin PO 324mg to chew (loading dose) - Clopidogrel PO 300mg (loading dose) - Metoprolol succinate PO 25mg - Atorvastatin PO 80mg - Troponin checks Q6h - Echo ordered for assessment of wall motion abnormalities - Lipid panel, HgbA1c, TSH with morning labs - Maintain K+ >4 and Mg >2 - NPO after midnight for likely routine PCI in AM - Continuous pulse oxometry - Strict I&O - Admit to Telemetry - O2 delivery through NC 2L PRN
[2025-05-04] MEDS: HEPARIN SOD INJ 5000 UNIT/ML VIAL 4000 UNIT IV (17:35)
[2025-05-04] MEDS: Heparin/D5w 25K 250 ML Ivpb 25,000 UNIT/250 ML BAG 10 UNIT IV (17:36)
[2025-05-04 18:12] VITALS: BP 131/72; PULSE 81; RESP 16; TEMP 36.7; O2SAT 97
[2025-05-04 18:15] LABS: Troponin I 0.800 ng/mL (0.0-0.045)
[2025-05-04 20:04] VITALS: PULSE 72; RESP 20; RESP 99
--- NOTE | 2025-05-04 20:04 | ESHP_ITS ---
<Statement entered by Yasmany Guzman MD - 05/05/25 17:32> Patient seen and examined at bedside. I discussed and supervised with the quality intern physician who took care of this patient. I personally saw and examined the patient. I agree with most of the assessment and plan. Plan of care discussed with attending Dr. Luis. Yasmany Guzman MD PGY-2 Documentation for date of: 05/04/25 HPI History of Present Illness History of present illness: 74-year-old male?with PMHx of CAD s/p stent 14yo, hyperlipidemia, hypertension, and type 2 diabetes mellitus, for which he is on Ozempic,?presented on 05/04/2025 with chest pain and tight feeling in his throat. He describes the chest pain as a pressure-like sensation, which radiates to bilateral shoulders. It had been going on all night long, and do he continues to be in discomfort, it has improved in intensity. Admits to exertional chest pain, and sleep apnea. Denies PND, fever, chills, nausea, vomiting, or shortness of breath reported. No other complaints.? He also takes clopidogrel. He reports a history of an artery that was previously blocked and opened during a heart procedure in [place]. ? ED course: VSS 154/65, HR 78, RR 14, T97.3, O2 98% in RA.? Labs showed WBC 6.3, Hgb 13.2, CMP glucose 152, ALP 154, troponin 0.022 which trended up to 0.510, and BNP 173.? EKG showed sinus rhythm, rate 72, ST depression in lead 2, AVF, and V2-V6? 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 ? Allergies: None PMHx: Hypertension, T2DM, hypercholesterolemia, SILVIANO Meds: Metformin, clopidogrel, atorvastatin, pending med rec PSHx: Nose, throat surgery for SILVIANO FHx: sister had stroke Exam Vital Signs Temp Pulse Resp BP Pulse Ox O2 Del Method 98.0 F 81 16 131/72 H 97 Room Air 05/04/25 18:12 05/04/25 18:12 05/04/25 18:12 05/04/25 18:12 05/04/25 18:12 05/04/25 18:12 Narrative Exam General: Alert and oriented x3, No apparent distress. Skin: Intact, Warm, no rashes. HEENT: Normocephalic, Atraumatic. Normal neck range of motion, Supple. Trachea midline. Respiratory: Lungs are clear to auscultation. Breath sounds are equal bilaterally with good, symmetric chest expansion. Cardiovascular: RRR, normal S1, S2, No murmurs. Distal pulses 2+ Abdomen: Abdomen non-distended, without erythema, or lesions. Normotensive bowel sounds x4. Percussion tympanic. Palpation soft, nontender in all four quadrants. No organomagely. Absent rigidity, guarding, or rebound. Musculoskeletal/Extremities: No erythema, swelling, tenderness of any joints. 2+ edema of LLE and 1+ edema of RLE. DP pulses +2/3 b/l. Full active ROM of all four extremities. Neurologic: NEURO: Oriented x3, cranial nerves II to XII grossly intact. Cerebellar exam (icuwgx-pt-kynb, [id number]-qm-[id number]) intact. Muscle strength 5/5 on UE and LE b/l, Moves extremities x4. Sensation intact to gross touch along C6-T1 and L2-S1 dermatomes. No focal neurologic deficits noted Psych: Thoughts linear and responses appropriate. Results: Labs 05/06/25 03:41 05/06/25 03:41 Labs: Short CBC 05/04/25 Range/Units 15:00 WBC 6.3 (3.8-10.6) Thou/mm3 Hgb 13.2 L (13.5-16.0) g/dL Hct 40.4 L (41.0-53.0) % Plt Count 112 L (140-440) Thou/mm3 BMP 05/04/25 15:00 Sodium 140 Potassium 4.5 Chloride 103 Carbon Dioxide 27.6 BUN 17 Creatinine 1.1 Glucose 252 H Calcium 9.7 Cardiac Enzymes 05/04/25 05/04/25 Range/Units 15:00 17:49 Troponin I 0.510 H* 0.800 H* D (0.0-0.045) ng/mL Liver Function 05/04/25 Range/Units 15:00 Total Bilirubin 0.5 (0.3-1.2) mg/dL AST 25 (0-34) U/L ALT 17 (10-49) U/L Alkaline Phosphatase 154 H (46-116) U/L Albumin 4.9 H (3.4-4.8) gm/dL Quality Measures Quality Measures VTE prophylaxis Advance care planning discussed with:: patient Medications Home Medications and Allergies Home Medications ?Medication ?Instructions ?Recorded ?Confirmed ?Type amlodipine 10 mg tablet 10 mg PO .pm 05/04/25 History aspirin 81 mg tablet,delayed 81 mg PO QDAY 05/04/25 History release atorvastatin 40 mg tablet 40 mg PO QDAY 05/04/2505/04 History clopidogrel 75 mg tablet 75 mg PO QDAY 05/04/2505/04 History furosemide 20 mg tablet 20 mg PO QDAY 05/04/2505/04 History lisinopril 40 mg tablet 40 mg PO QDAY 05/04/2505/04 History insulin glargine 100 unit/mL (3 15 unit subcut HS 04/1305/05/25 History mL) subcutaneous pen (Lantus Solostar U-100 Insulin) loratadine 10 mg tablet 10 mg PO DAILY 05/05/2504/13 History naproxen 375 mg tablet 375 mg PO DAILY PRN pain 05/05/25 History nifedipine 60 mg tablet,extended 60 mg PO QDAY 5 05/05/25 History release pen needle, diabetic 32 gauge x 05/05/25 05/05/25 His tory (Libra 2nd Gen Pen Needle) pioglitazone 15 mg-metformin 500 1 tab PO BID 05/05/25 05/05/25 History mg tablet potassium chloride 8 mEq 8 meq PO QDAY 05/05/2505/05 History capsule,extended release semaglutide 0.25 mg or 0.5 mg (2 0.25 mg subcut .week 05/05/25 05/05/25 History mg/3 mL) subcutaneous pen injector (Ozempic) Allergies Allergy/AdvReac Type Severity Reaction Status Date / Time No Known Allergies Allergy Verified 05/04/25 14:07 Visit Medications Acetaminophen (Acetaminophen 325 Mg Tablet) 650 mg PO Q6H PRN PRN Reason: Fever >101.5 Stop: 06/03/25 17:36 Acetaminophen (Acetaminophen 325 Mg Tablet) 650 mg PO Q6H PRN PRN Reason: PAIN SCALE 1-3 (mild Stop: 06/03/25 17:36 Hydrocodone Bitart/Acetaminophen (Hydrocodone/Apap 10/325 Tab) 1 tab PO Q4H PRN On Hold: 05/04/25 18:11 PRN Reason: PAIN SCALE 4-10(Mod-Sev Stop: 05/09/25 17:36 Hydrocodone Bitart/Acetaminophen (Hydrocodone/Apap 5/325 Tablet) 1 tab PO Q6HR PRN PRN Reason: PAIN SCALE 4-10(Mod-Sev Stop: 05/09/25 18:10 Aspirin (Aspirin Ec 81 Mg Tabec) 81 mg PO QDAY EAN Stop: 06/04/25 08:59 Clopidogrel Bisulfate (Clopidogrel Bisulfate 75 Mg Tablet) 75 mg PO QDAY EAN Stop: 06/04/25 08:59 Heparin Sodium/Dextrose (Heparin In D5w Ivpb) 25,000 unit in 250 mls @ 10 mls/hr IV .Q24H EAN; Protocol Stop: 05/18/25 16:59 Last Admin: 05/04/25 17:36 Dose: 8.351 units/kg/hr, 10 mls/hr Nitroglycerin (Nitroglycerin 0.4 Mg Subl Btl #25) 0.4 mg SL Q5MIN PRN PRN Reason: CHEST PAIN Discontinued Medications Aspirin (Aspirin Ec 81 Mg Tabec) 81 mg PO X1 ONE Stop: 05/04/25 15:26 Last Admin: 05/04/25 15:40 Dose: 81 mg Aspirin (Aspirin 81 Mg Chew) 243 mg PO X1 ONE Stop: 05/04/25 17:32 Last Admin: 05/04/25 18:32 Dose: Not Given Atorvastatin Calcium (Atorvastatin Calcium 20 Mg Tablet) 80 mg PO X1 ONE Stop: 05/04/25 17:37 Last Admin: 05/04/25 18:32 Dose: Not Given Clopidogrel Bisulfate (Clopidogrel Bisulfate 75 Mg Tablet) 300 mg PO X1 ONE Stop: 05/04/25 17:29 Last Admin: 05/04/25 18:32 Dose: Not Given Heparin Sodium (Porcine) (Heparin Sod Inj 5000 Unit/Ml Vial) 4,000 unit IV X1 ONE; Protocol Stop: 05/04/25 17:16 Last Admin: 05/04/25 17:35 Dose: 4,000 unit Metoprolol Succinate (Metoprolol Succinate Xl 25 Mg Tabcr) 25 mg PO X1 ONE Stop: 05/04/25 17:36 Last Admin: 05/04/25 18:32 Dose: Not Given Assessment & Plan Plan 74-year-old male?with PMHx of CAD s/p stent 14yo, hyperlipidemia, hypertension, and type 2 diabetes mellitus, for which he is on Ozempic,?presented on 05/04/2025 with chest pain and tight feeling in his throat. Admitted for Inpatient treatment of NSTE-ACS. #ACS #NSTEMI Likely Type I vs Type II #CAD s/p stent placement Patient preented with tight feeling in his throat and pressure-like chest pain, which had persisted overnight. EKG showed sinus rhythm, rate 72, ST depressions in lead II, aVF, and V2-V6. Troponin i 0.022 -> 0.510 -> 0.800. Patient reports stent placed 14 years ago, for which he is on clopidogrel daily at home. Plan: - Cardiology, Dr Joseph consulted, appreciate recs - Started therapeutic anticoagulation with UFH per ACS protocol, 12u/kg/h, with IVB 4000u - Aspirin PO 324mg to chew (loading dose); followed by aspirin 81mg daily - Clopidogrel PO 300mg (loading dose) - Metoprolol succinate PO 25mg - Atorvastatin PO 80mg - Troponin checks Q6h - Nitroglycerin SL 0.4mg Q5min PRN chest pain - Echo ordered for assessment of wall motion abnormalities - Lipid panel, HgbA1c, TSH with morning labs - Maintain K+ >4 and Mg >2 - NPO after midnight for likely routine PCI in AM - Continuous pulse oxometry - Strict I&O - Admit to Telemetry - O2 delivery through NC 2L PRN #T2DM -pending HgbA1c #HTN Patient reports being lisinopril QAM and amlodipine QHS at home BP without hospital meds is within normal limitis, will add home meds one at a time should pt develop hypertension during his stay -pending med reconciliation #Hyperlipidemia -pending med reconciliation -ordered lipid panel Health Maintenance: Disposition: Telemetry Diet: Cardiac PPx DVT: Heparin GTT PPx GI: [] Code Status: Routine This case was discussed with my attending physician, Dr. Luis, and senior resident, Dr Guzman. Even though this this note was carefully revised there may still be minor errors in wet cleaner machine due to voice recognition software. Joann Beyer, PGY I Attending Provider Attestation/Addendum I have seen and examined the patient. I was physically present for the mullins portions of the services provided including history, physical exam, diagnosis, treatment plans and orders. I agree with assessment and plan of care as documented by residents. After examination of the patient and review of the clinical data I feel that this patient needs admission to the hospital for further treatment/evaluation. Even though this this note was carefully revised there may still be minor errors in wet cleaner machine due to voice recognition software. William Luis MD
[2025-05-05] VITALS (11 sets, daily range): BP systolic 116–147; BP diastolic 64–73; PULSE 56–72; RESP 13–97; TEMP 36.1–36.5; O2SAT 92–99
[2025-05-05 00:52] LABS: Troponin I 3.327 ng/mL (0.0-0.045)
[2025-05-05 01:02] LABS: Partial Thromboplastin Time 59.3 Seconds (22.0-36.0)
[2025-05-05 05:50] LABS: Basophils # (Auto) 0.0 Thou/mm3 (0.0-0.2); Basophils % (Auto) 1 % (0-2.5); Eosinophils # (Auto) 0.2 Thou/mm3 (0.0-0.5); Eosinophils % (Auto) 3 % (0-10); Hematocrit 38.9 % (41.0-53.0); Hemoglobin 12.7 g/dL (13.5-16.0); Immature Granulocytes Auto 0.02 Thou/mm3 (0.00-0.00); Lymphocytes # (Auto) 1.6 Thou/mm3 (1.0-4.8); Lymphocytes % (Auto) 26 % (10-50); Mean Corpuscular HGB Conc 32.6 g/dl (31.0-37.0); Mean Corpuscular Hemoglobin 30.7 pg (25.0-35.0); Mean Corpuscular Volume 94 fL (80-100); Monocytes # (Auto) 0.4 Thou/mm3 (0.0-0.8); Monocytes % (Auto) 7 % (0-12); Neutrophils # (Auto) 3.9 Thou/mm3 (1.8-7.7); Neutrophils % (Auto) 64 % (37-80); Nucleated Red Blood Cell # 0.00 Thou/mm3 (0.00-0.00); Nucleated Red Blood Cell % 0 /100 WBC (0); Platelet Count 97 Thou/mm3 (140-440); RDW Standard Deviation 48.6 fL (35.1-43.9); Red Blood Count 4.14 Miln/mm3 (4.50-5.90); White Blood Count 6.1 Thou/mm3 (3.8-10.6)
[2025-05-05 05:58] LABS: Glucose Estimated Average 192 mg/dL (80-131); Hemoglobin A1C 8.3 % Hgb (4.8-6.0)
[2025-05-05 06:18] LABS: Alanine Aminotransferase 16 U/L (10-49); Albumin, Serum 4.1 gm/dL (3.4-4.8); Albumin/Globulin Ratio 2.1 (1.2-2.2); Alkaline Phosphatase 110 U/L (46-116); Anion Gap 10 (7-16); Aspartate Amino Transferase 41 U/L (0-34); BUN/Creatinine Ratio 12 Ratio (12-20); Bilirubin,Total 0.5 mg/dL (0.3-1.2); Blood Urea Nitrogen 12 mg/dL (9-23); Calcium 9.1 mg/dL (8.3-10.6); Calcium (Corrected) 9.1 mg/dL (8.5-10.1); Carbon Dioxide 26.6 mMol/L (20.0-31.0); Cardiac Risk Estimate 3.8 RATIO (4.0-6.7); Chloride 105 mMol/L (98-107); Cholesterol 146 mg/dL (132-200); Creatinine (Component) 1.0 mg/dL (0.6-1.3); Estimated Creatinine Clearance 86.6 mL/min (>60); Globulin 2.0 gm/dL (2.3-3.5); Glucose 190 mg/dL (74-106); HDL Cholesterol 38 mg/dL (40-60); LDL Cholesterol,Calculated 75 mg/dL (0-130); Magnesium 2.0 mg/dL (1.6-2.6); Osmolality,Calculated 287 (275-295); Phosphorous 2.5 mg/dL (2.4-5.1); Potassium 4.3 mMol/L (3.4-5.1); Sodium 142 mMol/L (136-145); Thyroid Stimulating Hormone 0.89 uIU/mL (0.55-4.78); Total Protein 6.1 gm/dL (5.7-8.2); Triglycerides 165 mg/dL (30-150); eGFR > 60 See Note
[2025-05-05 06:20] LABS: Troponin I 5.700 ng/mL (0.0-0.045)
[2025-05-05 07:43] LABS: Partial Thromboplastin Time 51.9 Seconds (22.0-36.0)
[2025-05-05] MEDS: INSULIN LISPRO (AdmeLOG) 1 UNIT/0.01 ML UNIT SC ×3 (07:55→17:54)
[2025-05-05] MEDS: CLOPIDOGREL BISULFATE 75 MG TABLET PO (07:56)
[2025-05-05] MEDS: ASPIRIN EC 81 MG TABEC PO (07:56)
--- NOTE | 2025-05-05 08:03 | PD.IMCONS ---
HPI Data of Consult Requesting Physician: Khloe Valencia DO Primary Care Provider: Neil Rainey MD Consult Narrative History of present illness: This is a 74-year-old male?with PMHx of CAD s/p stent 14yo, hyperlipidemia, hypertension, and type 2 diabetes mellitus pt was admitted with chest pain EKG ST depression ' troponin peaked at 5 , cc:: cc: Khleo Valencia DO Meds Home Medications and Allergies Home Medications ?Medication ?Instructions ?Recorded ?Confirmed ?Type amlodipine 10 mg tablet 10 mg PO .od 05/04/25 05/04/25 History aspirin 81 mg tablet,delayed 81 mg PO QDAY 05/04/25 05/04/25 History release atorvastatin 40 mg tablet 40 mg PO QDAY 05/04/25 05/04/25 History clopidogrel 75 mg tablet 75 mg PO QDAY 05/04/25 05/04/25 History furosemide 20 mg tablet 20 mg PO QDAY 05/04/25 05/04/25 History lisinopril 40 mg tablet 40 mg PO QDAY 05/04/25 05/04/25 History Allergies Allergy/AdvReac Type Severity Reaction Status Date / Time No Known Allergies Allergy Verified 05/04/25 14:07 Exam Vital Signs Temp Pulse Resp BP Pulse Ox O2 Del Method 96.9 F 56 L 18 136/70 H 92 L Room Air 05/05/25 04:00 05/05/25 04:00 05/05/25 04:00 05/05/25 04:00 05/05/25 04:00 05/05/25 04:00 Routine HEENT Exam Head: Present normocephalic and atraumatic Eye: Present EOMI and PERRL ENT: Present mucous membranes moist Routine Neck Exam Neck: Present supple and trachea midline Routine Respiratory Exam Respiratory: Present chest non-tender, lungs clear, normal breath sounds and no resp distress Routine Cardiovascular Exam Cardiovascular: Present RRR Routine Abdominal Exam Abdominal: Present soft and normoactive bowel sounds Routine Extremities Exam Extremities: Present full ROM Routine Skin Exam Skin: Present intact, dry and warm Routine Neurological Exam Neurological: Present alert, oriented X3 and CN II-XII intact Routine Psychiatric Exam Psychiatric: Present normal affect and normal thought process Results Labs 05/05/25 04:38 05/05/25 04:38 Labs: Short CBC 05/04/25 05/05/25 Range/Units 15:00 04:38 WBC 6.3 6.1 (3.8-10.6) Thou/mm3 Hgb 13.2 L 12.7 L (13.5-16.0) g/dL Hct 40.4 L 38.9 L (41.0-53.0) % Plt Count 112 L 97 L (140-440) Thou/mm3 BMP 05/04/25 05/05/25 15:00 04:38 Sodium 140 142 Potassium 4.5 4.3 Chloride 103 105 Carbon Dioxide 27.6 26.6 BUN 17 12 Creatinine 1.1 1.0 Glucose 252 H 190 H D Calcium 9.7 9.1 Cardiac Enzymes 05/04/25 05/04/25 05/05/25 Range/Units 15:00 17:49 00:02 Troponin I 0.510 H* 0.800 H* D 3.327 H* D (0.0-0.045) ng/mL 05/05/25 Range/Units 04:38 Troponin I 5.700 H* D (0.0-0.045) ng/mL Liver Function 05/04/25 05/05/25 Range/Units 15:00 04:38 Total Bilirubin 0.5 0.5 (0.3-1.2) mg/dL AST 25 41 H (0-34) U/L ALT 17 16 (10-49) U/L Alkaline Phosphatase 154 H 110 D (46-116) U/L Albumin 4.9 H 4.1 D (3.4-4.8) gm/dL Assessment and Plan Assessment and plan (1) Chest pain: Status: Acute (2) NSTEMI (non-ST elevation myocardial infarction): Status: Acute (3) Diabetes: Status: Acute (4) Coronary artery disease status post coronary stent insertion: Status: Acute Additional Assessment & Plan Additional Plan: continue ASA/ Plavix/ heparin echo heart cath
[2025-05-05 09:00] LABS: Path Review Blood Smear Sent to Pathologist
[2025-05-05 11:48] LABS: Partial Thromboplastin Time 47.7 Seconds (22.0-36.0)
[2025-05-05 12:00] LABS: Troponin I 5.606 ng/mL (0.0-0.045)
[2025-05-05] MEDS: HEPARIN SOD INJ 5000 UNIT/ML VIAL 2000 UNIT IVP (13:43)
--- NOTE | 2025-05-05 14:22 | ESPR_ITS ---
<Statement entered by rPachi Galaviz MD - 05/05/25 18:52> Patient was seen and examined at bedside. I agree on the assessment and plan on this note as documented by resident Dr Joann Beyer DO PGY1. 74-year-old male with past medical history of CAD status post stent, hyperlipidemia, hypertension and type 2 diabetes mellitus who presented to [facility] with a chief complaint of cardiac chest pain, EKG did show significant ST depression in anterior lead and inferior lead. Patient was given loading dose aspirin Plavix, continues to complain of on and off chest pain at times although denies chest pain in the last 24 hours. Patient is on heparin gtt., cardiology is consulted patient will be kept n.p.o. after midnight as is scheduled for PCI in a.m. We will resume home dose Lasix, beta-alfredo will be deferred today as patient had episode of bradycardia. Patient n.p.o., pending cardiac cath in a.m. Case discussed with attending Dr. Khloe Strickland MD PGY-2 Documentation for date of: 05/05/25 Subjective Subjective Interval history: Patient was seen and examined at bedside. No acute events took place overnight. Patient denies chest pain, or shortness of breath overnight. States that his last dose of Ozempic was last Monday 2 days ago and that he gets the shots every Monday. Legs continue to be swollen, however the swelling used to be much worse when patient was drinking alcohol before he quit 4 to 5 months ago. Patient was offered CPAP at night, as he is unable to sleep flat on his bed due to episodes of apnea from an underlying SILVIANO. Exam Vital Signs Temp Pulse Resp BP Pulse Ox O2 Del Method 97.7 F 58 L 16 132/64 H 94 L Room Air 05/05/25 12:00 05/05/25 12:00 05/05/25 12:00 05/05/25 12:00 05/05/25 12:00 05/05/25 12:00 Narrative Exam General: Alert and oriented x3, No apparent distress. Obesity. Skin: Intact, Warm, no rashes. HEENT: Normocephalic, Atraumatic. Normal neck range of motion, Supple. Trachea midline. Respiratory: Lungs are clear to auscultation. Breath sounds are equal bilaterally with good, symmetric chest expansion. Cardiovascular: RRR, normal S1, S2, No murmurs. Distal pulses 2+ Abdomen: Abdomen non-distended, without erythema, or lesions. Normotensive bowel sounds x4. Percussion tympanic. Palpation soft, nontender in all four quadrants. No organomagely. Absent rigidity, guarding, or rebound. Musculoskeletal/Extremities: No erythema, swelling, tenderness of any joints. 2+ edema of LLE and 1+ edema of RLE. DP pulses +2/3 b/l. Full active ROM of all four extremities. Neurologic: NEURO: Oriented x3, cranial nerves II to XII grossly intact. Muscle strength 5/5 on UE and LE b/l, Moves extremities x4. Sensation intact to gross touch along C6-T1 and L2-S1 dermatomes. No focal neurologic deficits noted Psych: Thoughts linear and responses appropriate. Objective Labs 05/06/25 03:41 05/06/25 03:41 Labs: Laboratory Results - last 24 hr 05/04/25 05/04/25 05/05/25 15:00 17:49 00:02 WBC 6.3 RBC 4.36 L Hgb 13.2 L Hct 40.4 L MCV 93 MCH 30.3 MCHC 32.7 RDW Std Deviation 47.8 H Plt Count 112 L Neut % (Auto) 73 Lymph % (Auto) 18 [place] % (Auto) 6 Eos % (Auto) 2 Baso % (Auto) 1 Neut # (Auto) 4.6 Lymph # (Auto) 1.2 [place] # (Auto) 0.4 Eos # (Auto) 0.1 Baso # (Auto) 0.0 Immature Gran # (Auto) 0.02 H Absolute Nucleated RBC 0.00 Immature Gran % 0 Nucleated RBC % 0 Smear Path Review APTT 30.7 59.3 H D Sodium 140 Potassium 4.5 Chloride 103 Carbon Dioxide 27.6 Anion Gap 9 BUN 17 Creatinine 1.1 Estim Creat Clear Calc 78.7 eGFR > 60 BUN/Creatinine Ratio [address] Glu mg/dL Hemoglobin A1c Calculated Osmolality 289 Calcium 9.7 Corrected Calcium 9.7 Phosphorus Magnesium Total Bilirubin 0.5 AST 25 ALT 17 Alkaline Phosphatase 154 H Troponin I 0.510 H* 0.800 H* D 3.327 H* D B-Natriuretic Peptide 173 H Total Protein 7.1 Albumin 4.9 H Globulin 2.2 L Albumin/Globulin Ratio 2.2 Triglycerides Cholesterol LDL Cholesterol, Calc HDL Cholesterol Cholesterol/HDL Ratio Lipase 40 TSH 05/05/25 05/05/25 05/05/25 04:38 06:55 10:28 WBC 6.1 RBC 4.14 L Hgb 12.7 L Hct 38.9 L MCV 94 MCH 30.7 MCHC 32.6 RDW Std Deviation 48.6 H Plt Count 97 L Neut % (Auto) 64 Lymph % (Auto) 26 [place] % (Auto) 7 Eos % (Auto) 3 Baso % (Auto) 1 Neut # (Auto) 3.9 Lymph # (Auto) 1.6 [place] # (Auto) 0.4 Eos # (Auto) 0.2 Baso # (Auto) 0.0 Immature Gran # (Auto) 0.02 H Absolute Nucleated RBC 0.00 Immature Gran % 0 Nucleated RBC % 0 Smear Path Review Sent to Pathologist APTT 51.9 H 47.7 H Sodium 142 Potassium 4.3 Chloride 105 Carbon Dioxide 26.6 Anion Gap 10 BUN 12 Creatinine 1.0 Estim Creat Clear Calc 86.6 eGFR > 60 BUN/Creatinine Ratio 12 [address] Glu mg/dL 192 H Hemoglobin A1c 8.3 H Calculated Osmolality 287 Calcium 9.1 Corrected Calcium 9.1 Phosphorus 2.5 Magnesium 2.0 Total Bilirubin 0.5 AST 41 H ALT 16 Alkaline Phosphatase 110 D Troponin I 5.700 H* D 5.606 H* B-Natriuretic Peptide Total Protein 6.1 Albumin 4.1 D Globulin 2.0 L Albumin/Globulin Ratio 2.1 Triglycerides 165 H Cholesterol 146 LDL Cholesterol, Calc 75 HDL Cholesterol 38 L Cholesterol/HDL Ratio 3.8 L Lipase TSH 0.89 Quality Measures Quality Measures none Advance care planning discussed with:: patient Assessment & Plan Assessment Current Active Medications: Generic Name Dose Route Start Last Admin Trade Name Freq PRN Reason Stop Dose Admin Acetaminophen 650 mg 05/04/25 17:37 Acetaminophen 325 Mg Tablet PO 06/03/25 17:36 Q6H PRN Fever >101.5 Acetaminophen 650 mg 05/04/25 17:37 Acetaminophen 325 Mg Tablet PO 06/03/25 17:36 Q6H PRN PAIN SCALE 1-3 (mild Hydrocodone Bitart/Acetaminophen 1 tab 05/04/25 17:37 Hydrocodone/Apap 10/325 Tab PO 05/09/25 17:36 On Hold: 05/04/25 18:11 Q4H PRN PAIN SCALE 4-10(Mod-Sev Hydrocodone Bitart/Acetaminophen 1 tab 05/04/25 18:11 Hydrocodone/Apap 5/325 Tablet PO 05/09/25 18:10 Q6HR PRN PAIN SCALE 4-10(Mod-Sev Protocol Aspirin 81 mg 05/05/25 09:00 05/05/25 07:56 Aspirin Ec 81 Mg Tabec PO 06/04/25 08:59 81 mg QDAY EAN Administration Atorvastatin Calcium 80 mg 05/05/25 21:00 Atorvastatin Calcium 20 Mg Tablet PO 06/04/25 20:59 HS EAN Clopidogrel Bisulfate 75 mg 05/05/25 09:00 05/05/25 07:56 Clopidogrel Bisulfate 75 Mg Tablet PO 06/04/25 08:59 75 mg QDAY EAN Administration Dextrose 25 ml 05/04/25 20:48 Dextrose 50%-Water Inj 50 Ml Syringe IV 06/03/25 20:47 Q15MIN PRN BG 50-70 responsive npo pt Dextrose 50 ml 05/04/25 20:48 Dextrose 50%-Water Inj 50 Ml Syringe IV 06/03/25 20:47 Q15MIN PRN BG <50 OR BG <70 & pt unresponsive Furosemide 20 mg 05/05/25 10:15 05/05/25 11:29 Furosemide 20 Mg Tablet PO 06/04/25 10:14 20 mg QDAY EAN Administration Glucagon 1 mg 05/04/25 20:48 Glucagon Inj 1 Mg Vial IM Q15MIN PRN BG <70, and no IV access Heparin Sodium/Dextrose 25,000 unit in 250 mls @ 10 mls/hr 05/04/25 17:00 05/05/25 13:47 Heparin In D5w Ivpb IV 05/18/25 16:59 10.35 units/kg/hr .Q24H EAN 12.394 mls/hr Protocol Titration 8.351 UNITS/KG/HR Insulin Human Lispro 0 unit 05/05/25 07:30 05/05/25 12:07 Insulin Lispro (Admelog) 1 Unit/0.01 Ml Unit SC 06/04/25 07:29 1 unit AC EAN Administration Protocol Nitroglycerin 0.4 mg 05/04/25 17:43 Nitroglycerin 0.4 Mg Subl Btl #25 SL Q5MIN PRN CHEST PAIN Sodium Chloride 1 spray 05/05/25 12:00 Saline Nasal 45 Ml Btl NASAL 06/04/25 11:59 PRN PRN CONGESTION Plan 74-year-old male?with PMHx of CAD s/p stent 14yo, hyperlipidemia, hypertension, and type 2 diabetes mellitus, for which he is on Ozempic,?presented on 05/04/2025 with chest pain and tight feeling in his throat. Admitted for Inpatient treatment of NSTE-ACS. #Chest Pain #ACS #NSTEMI Likely Type I vs Type II #CAD s/p stent placement Patient preented with tight feeling in his throat and pressure-like chest pain, which had persisted overnight. EKG showed sinus rhythm, rate 72, ST depressions in lead II, aVF, and V2-V6. Troponin i 0.022 -> 0.510 -> 0.800 . Patient reports stent placed 14 years ago, for which he is on clopidogrel daily at home. On 05/05/2025 troponins went from 3.327-5 0.200-5.606, at peak at 5.7. Patient scheduled for routine angiography by Dr. Joseph tomorrow morning. Plan: - Cardiology, Dr Joseph consulted, appreciate recs - Started therapeutic anticoagulation with UFH per ACS protocol, 12u/kg/h, with IVB 4000u - Aspirin PO 324mg to chew (loading dose); followed by aspirin 81mg daily - Clopidogrel PO 300mg (loading dose); followed by Plavix 75 mg p.o. daily - Metoprolol succinate PO 25mg held in the setting of episodes of bradycardia overnight - Atorvastatin PO 80mg - Troponin checks Q6h - Nitroglycerin SL 0.4mg Q5min PRN chest pain - Echo ordered for assessment of wall motion abnormalities - Lipid panel, HgbA1c, TSH with morning labs - Maintain K+ >4 and Mg >2 - NPO after midnight for likely routine PCI in AM - Continuous pulse oxometry - Strict I&O - Admit to Telemetry - O2 delivery through NC 2L PRN #T2DM Hgb A1c 8.3 ? Insulin sliding scale AC #HTN Patient reports being lisinopril QAM and amlodipine QHS at home BP without hospital meds is within normal limitis, will add home meds one at a time should pt develop hypertension during his stay. Patient noted to have bilateral lower extremity edema on physical exam. ?Lasix 20 mg daily #Hyperlipidemia TG 165, CH 146, LDL 75, HDL 38 ?Patient on atorvastatin p.o. 80 mg daily This case was discussed with my attending physician, Dr. Valencia , and senior resident, Dr Galaviz. Even though this this note was carefully revised there may still be minor errors in cross country/track and field coach due to voice recognition software. Joann Beyer DO PGY I Attending Provider Attestation/Addendum I, Khloe Valencia DO, attest that I was physically present for the mullins portions of the service and evaluated the patient with the resident and I reviewed and discussed the case with the resident and agree with the resident's findings and plans of care as documented above Patient seen and evaluated this a.m. Daughter at bedside. Patient states that he is feeling well and anxious to sit in a chair rather than in bed. Patient states that he had a previous injury in the past and thus, usually sleeps in a recliner at home. However, he does not keep his legs elevated. Family at bedside states that the patient always has bilateral lower extremity edema, currently 1+ pitting in bilateral lower extremities. Patient reports that his chest pain has resolved. However, on presentation yesterday, patient had left substernal chest pain that radiated to his neck. He states that he has been compliant with his aspirin and Plavix at home. He denies any shortness of breath, fevers, chills, lightheadedness otherwise. Pending cardiac cath in AM as he has diffuse ST depressions noted on EKG.. Will place n.p.o. after midnight otherwise. He remains on heparin drip in addition to dual antiplatelet therapy. Will resume home Lasix as patient has edema noted.
--- NOTE | 2025-05-05 14:46 | PC.SS ---
Rounding Note: Plan is for the patient to obtain cardiac cath tomorrow.
--- NOTE | 2025-05-05 15:11 | PC.SS ---
CUSTOM FURRIER conducted bedside contact with the patient conduct initial assessment and to discuss discharge planning.? Patient confirmed demographic information.? Patient resides at home with spouse, Britta Park .? Patient is retired.? Patient utilizes a cane to assist with ambulation.? Patient does not possess home oxygen.? BI-PAP at patient?s bedside.? Patient reports not utilizing BI-PAP at present time.? Patient describes the ability to complete ADL?s independently.? Patient identified spouse, Britta Park; as medical surrogate decision maker.? Patient?s PCP is Dr. Rainey [facility].? Patient does not participate with dialysis.? Patient does not possess any specialty providers.? Patient possesses history of diabetes, insulin dependent.? Plan is for the patient to return home at the time of discharge.? Family will provide transportation on behalf of the patient.? Patient requesting home oxygen.? CUSTOM FURRIER informed patient that assessment to confirm need for home oxygen will be submitted to bedside nurse.? If patient qualifies for home oxygen, referral to be submitted.? No further discharge needs identified by the patient.? No further intervention required at this time, social service worker will be available to address any further concerns.? Next of Kin: Britta Park D/C Plan: Home
--- NOTE | 2025-05-05 15:47 | PC.SS ---
ASBESTOS WORKER notified bedside nurse of need to conduct room air evaluation to determine if patient meets criteria for home oxygen.
--- NOTE | 2025-05-05 17:00 | PC.NURSE ---
O2 sats done. Sitting o2 sta 97% on room air. Walking down hallway on RA 91-95%. Recovery O2 on RA sitting 98%
[2025-05-05] MEDS: Heparin/D5w 25K 250 ML Ivpb 25,000 UNIT/250 ML BAG 12.394 UNIT IV (17:12)
[2025-05-05] MEDS: HYDROcodone/APAP 5/325 TABLET 1 TAB PO (19:04)
[2025-05-05] MEDS: NITROGLYCERIN 0.4 MG SUBL BTL #25 SL ×2 (19:58→21:41)
[2025-05-05] MEDS: ATORVASTATIN CALCIUM 20 MG TABLET 80 MG PO (20:15)
[2025-05-05 20:40] LABS: Partial Thromboplastin Time 66.6 Seconds (22.0-36.0)
[2025-05-06] VITALS (24 sets, daily range): BP systolic 115–177; BP diastolic 53–104; PULSE 53–92; RESP 10–98; TEMP 36.1–36.2; O2SAT 94–100
--- NOTE | 2025-05-06 00:25 | PC.NURSE ---
PATIENT DESATED TO 70'S WHILE SLEEPING THERES AN ORDER FOR BIPAP BUT PATIENT KEPT REFUSING AND HOOKED HIM TO NASAL CANNULA AT 2L INSTEAD.
[2025-05-06 04:01] LABS: Basophils # (Auto) 0.0 Thou/mm3 (0.0-0.2); Basophils % (Auto) 1 % (0-2.5); Eosinophils # (Auto) 0.2 Thou/mm3 (0.0-0.5); Eosinophils % (Auto) 3 % (0-10); Hematocrit 38.0 % (41.0-53.0); Hemoglobin 12.2 g/dL (13.5-16.0); Immature Granulocytes Auto 0.01 Thou/mm3 (0.00-0.00); Lymphocytes # (Auto) 1.8 Thou/mm3 (1.0-4.8); Lymphocytes % (Auto) 28 % (10-50); Mean Corpuscular HGB Conc 32.1 g/dl (31.0-37.0); Mean Corpuscular Hemoglobin 30.5 pg (25.0-35.0); Mean Corpuscular Volume 95 fL (80-100); Monocytes # (Auto) 0.6 Thou/mm3 (0.0-0.8); Monocytes % (Auto) 9 % (0-12); Neutrophils # (Auto) 3.7 Thou/mm3 (1.8-7.7); Neutrophils % (Auto) 59 % (37-80); Nucleated Red Blood Cell # 0.00 Thou/mm3 (0.00-0.00); Nucleated Red Blood Cell % 0 /100 WBC (0); Platelet Count 101 Thou/mm3 (140-440); RDW Standard Deviation 50.4 fL (35.1-43.9); Red Blood Count 4.00 Miln/mm3 (4.50-5.90); White Blood Count 6.3 Thou/mm3 (3.8-10.6)
[2025-05-06 04:19] LABS: Alanine Aminotransferase 17 U/L (10-49); Albumin, Serum 4.0 gm/dL (3.4-4.8); Albumin/Globulin Ratio 2.0 (1.2-2.2); Alkaline Phosphatase 109 U/L (46-116); Anion Gap 10 (7-16); Aspartate Amino Transferase 35 U/L (0-34); BUN/Creatinine Ratio 13 Ratio (12-20); Bilirubin,Total 0.6 mg/dL (0.3-1.2); Blood Urea Nitrogen 16 mg/dL (9-23); Calcium 9.4 mg/dL (8.3-10.6); Calcium (Corrected) 9.4 mg/dL (8.5-10.1); Carbon Dioxide 27.5 mMol/L (20.0-31.0); Chloride 104 mMol/L (98-107); Creatinine (Component) 1.2 mg/dL (0.6-1.3); Estimated Creatinine Clearance 116.5 mL/min (>60); Globulin 2.0 gm/dL (2.3-3.5); Glucose 207 mg/dL (74-106); Magnesium 1.9 mg/dL (1.6-2.6); Osmolality,Calculated 288 (275-295); Phosphorous 2.9 mg/dL (2.4-5.1); Potassium 4.1 mMol/L (3.4-5.1); Sodium 141 mMol/L (136-145); Total Protein 6.0 gm/dL (5.7-8.2); eGFR > 60 See Note
[2025-05-06 04:31] LABS: INR 1.0 (0.9-1.3); Partial Thromboplastin Time 77.9 Seconds (22.0-36.0); Prothrombin Time 10.3 Seconds (9.0-12.2)
[2025-05-06] MEDS: NITROGLYCERIN 0.4 MG SUBL BTL #25 SL (05:57)
[2025-05-06] MEDS: INSULIN LISPRO (AdmeLOG) 1 UNIT/0.01 ML UNIT SC ×2 (08:00→17:26)
[2025-05-06] MEDS: CLOPIDOGREL BISULFATE 75 MG TABLET PO (08:02)
[2025-05-06] MEDS: ASPIRIN EC 81 MG TABEC PO (08:02)
--- NOTE | 2025-05-06 08:14 | PD.IMPROG ---
Documentation for date of: 05/06/25 Subjective Subjective Interval history: Non-ST elevation DE Heart catheter today Today no chest pain Exam Vital Signs Temp Pulse Resp BP Pulse Ox O2 Del Method O2 Flow Rate 96.9 F 92 12 142/66 H 99 Room Air 2 05/06/25 04:00 05/06/25 07:53 05/06/25 07:53 05/06/25 05:57 05/06/25 07:53 05/05/25 19:51 05/06/25 07:53 FiO2 97 05/06/25 07:53 Routine HEENT Exam Head: Present normocephalic and atraumatic Eye: Present EOMI and PERRL ENT: Present mucous membranes moist Routine Neck Exam Neck: Present supple and trachea midline Routine Respiratory Exam Respiratory: Present chest non-tender, lungs clear, normal breath sounds and no resp distress Routine Cardiovascular Exam Cardiovascular: Present RRR Routine Abdominal Exam Abdominal: Present soft and normoactive bowel sounds Routine Extremities Exam Extremities: Present full ROM Routine Skin Exam Skin: Present intact, dry and warm Routine Neurological Exam Neurological: Present alert, oriented X3 and CN II-XII intact Routine Psychiatric Exam Psychiatric: Present normal affect and normal thought process Objective Labs 05/06/25 03:41 05/06/25 03:41 Labs: Laboratory Results - last 24 hr 05/05/25 05/05/25 05/05/25 04:38 10:28 19:39 WBC RBC Hgb Hct MCV MCH MCHC RDW Std Deviation Plt Count Neut % (Auto) Lymph % (Auto) [place] % (Auto) Eos % (Auto) Baso % (Auto) Neut # (Auto) Lymph # (Auto) [place] # (Auto) Eos # (Auto) Baso # (Auto) Immature Gran # (Auto) Absolute Nucleated RBC Immature Gran % Nucleated RBC % Smear Path Review Sent to Pathologist PT INR APTT 47.7 H 66.6 H D Sodium Potassium Chloride Carbon Dioxide Anion Gap BUN Creatinine Estim Creat Clear Calc eGFR BUN/Creatinine Ratio Glucose Calculated Osmolality Calcium Corrected Calcium Phosphorus Magnesium Total Bilirubin AST ALT Alkaline Phosphatase Troponin I 5.606 H* Total Protein Albumin Globulin Albumin/Globulin Ratio 05/06/25 03:41 WBC 6.3 RBC 4.00 L Hgb 12.2 L Hct 38.0 L MCV 95 MCH 30.5 MCHC 32.1 RDW Std Deviation 50.4 H Plt Count 101 L Neut % (Auto) 59 Lymph % (Auto) 28 [place] % (Auto) 9 Eos % (Auto) 3 Baso % (Auto) 1 Neut # (Auto) 3.7 Lymph # (Auto) 1.8 [place] # (Auto) 0.6 Eos # (Auto) 0.2 Baso # (Auto) 0.0 Immature Gran # (Auto) 0.01 H Absolute Nucleated RBC 0.00 Immature Gran % 0 Nucleated RBC % 0 Smear Path Review PT 10.3 INR 1.0 APTT 77.9 H D Sodium 141 Potassium 4.1 Chloride 104 Carbon Dioxide 27.5 Anion Gap 10 BUN 16 Creatinine 1.2 Estim Creat Clear Calc 116.5 eGFR > 60 BUN/Creatinine Ratio 13 Glucose 207 H Calculated Osmolality 288 Calcium 9.4 Corrected Calcium 9.4 Phosphorus 2.9 Magnesium 1.9 Total Bilirubin 0.6 AST 35 H ALT 17 Alkaline Phosphatase 109 Troponin I Total Protein 6.0 Albumin 4.0 Globulin 2.0 L Albumin/Globulin Ratio 2.0 Assessment & Plan A&P Narrative heart cath today Time Spent With Patient Time: Total time spent is greater than 50% in coordination of care (as documented) at patient's floor/unit and/or counseling patient:
--- NOTE | 2025-05-06 10:26 | PD.CARDCATH ---
Cardiac Cath Procedure Procedure Narrative Date of the procedure 05/06/2025 Indication for the procedure This is a 74-year-old gentleman with hypertension hyperlipidemia diabetes Prior history of coronary artery disease angioplasty and stent placement Patient was admitted for chest pain and ruled in for non-ST elevation ND Cardiac catheter and cor angiogram recommended Title of the procedure 1.left heart catheterization 2.left coronary angiogram 3.right coronary angiogram 4.left ventriculogram 5.conscious sedation 6.radiographic interpretation supervision 7.ultrasound guidance for right radial access 8.angioplasty and stent placement to distal RCA Procedure This was done in the cardiac lab under current electrocardiographic monitoring Intermittent blood pressure monitoring right radial access obtained using modified Seldinger technique and ultrasound guidance 6 Frisian sheath was placed TIG 4 catheter was used for selective engagement of the left coronary artery TIG 4 catheter was used for selective images right coronary artery TIG 4 catheter used for left ventriculogram Hemodynamics Overall left ventricular systolic function appears normal Approximate ejection fraction 50% End-diastolic pressure was 16 mmHg There is no gradient across the aortic valve Coronary anatomy 1.left Main coronary artery appears normal 2.left anterior descending artery proximally has luminal regularities ;in the mid to distal region it is occluded 100% at this side the vessel is rather small 3.circumflex shows luminal regularities, mid segment shows 20% lesion 4.obtuse marginal shows 20% lesion in the midsegment 5.right coronary is a dominant vessel that has a 99% occlusion distally, beyond that the posterolateral branch appears to have a stent the stent is chronically occluded 6.posterior descending artery appears to have a stent stent appears to be widely patent, proximal to the stent there is a 50 to 60% stenosis noted Conclusion Significant lesion in the large distal RCA We will proceed with intervention Angioplasty and stent placement distal RCA JR4 guiding catheter used to obtain coaxial access Cloth Shrinking Machine Operator Helper 50 wire was used to cross the lesion Predilatation was done with 2.5 x 12 mm balloon up to 16 felicitas Following that a 4 x 15 mm stent was placed across the lesion and dilated up to 14 felicitas Post angiogram reveals adequate expansion of the entire length of the stent Conclusion Successful angioplasty and stent placement to distal RCA
[2025-05-06] MEDS: CLOPIDOGREL BISULFATE 75 MG TABLET 300 MG PO (10:48)
[2025-05-06] MEDS: ASPIRIN 81 MG CHEW 324 MG PO (10:49)
--- NOTE | 2025-05-06 14:06 | PC.NURSE ---
Addendum entered by Nilson Mello RN 05/06/25 14:14: Also informed RN that there is an order for patient to continue Aspirin and plavix, Heparin Drip was discontinued Original Note: TR band removed at 13:30 Surgical site asymptomatic, no active bleeding, no hematoma noted on right upper extremity or around the surgical site. Capillary refill <3 seconds. no noted changes in color or temperature on right upper extremity. Patient denies general and localized pain. no tingling or numbness felt to right upper extremity. Tegaderm and Coban wrap applied. Will continue to monitor Report given to IVY Mukherjee who is covering for IVY Bowen informed RN about white tape removal and clear tape removal White Coban 05/07/25 @13:30 Clear tape 05/08/25 @ 13:30 Also informed RN and Patient that the right wrist should not be twisted, bent or lift anything up thats heavier then 5lbs
--- NOTE | 2025-05-06 17:06 | ESPR_ITS ---
<Statement entered by Prachi Galaviz MD - 05/07/25 19:34> Patient was seen and examined at bedside. I agree on the assessment and plan on this note as documented by resident Dr Joann Beyer DO PGY1. 74-year-old male with past medical history as below admitted for NSTEMI, patient underwent cardiac catheterization today showed significant lesion in the large distal RCA status post angioplasty and stent placement, patient otherwise has disease in LAD with 100% distal occlusion and circumflex vessel. Patient seen postcardiac cath stable no current complaints, we will continue with DAPT. Will monitor overnight, continue diabetes management. Anticipate discharge in the next 24 to 48 hours pending cardiology recommendations and observation. Case discussed with attending Dr. Khloe Strickland MD PGY-2 Documentation for date of: 05/06/25 Subjective Subjective Interval history: Patient was seen and examined at bedside. No acute events took place overnight. Patient was experiencing chest pain when he tied to pull himself up his bed late at night yesterday and was given nitroglycerin sublingual, and agiain when it came back an hour later. He did not experience any more pain afterwards. Patient was taken to boot and shoe laborer in the morning where he underwent successful angioplasty and stent placement to distal RCA. Exam Vital Signs Temp Pulse Resp BP Pulse Ox O2 Del Method O2 Flow Rate 97.0 F 61 18 166/68 H 96 Room Air 2 05/06/25 16:00 05/06/25 16:00 05/06/25 16:00 05/06/25 16:00 05/06/25 16:00 05/06/25 16:00 05/06/25 08:20 FiO2 97 05/06/25 14:15 Narrative Exam General: Alert and oriented x3, No apparent distress. Obesity. Skin: Intact, Warm, no rashes. HEENT: Normocephalic, Atraumatic. Normal neck range of motion, Supple. Trachea midline. Respiratory: Lungs are clear to auscultation. Breath sounds are equal bilaterally with good, symmetric chest expansion. Cardiovascular: RRR, normal S1, S2, No murmurs. Distal pulses 2+ Abdomen: Abdomen non-distended, without erythema, or lesions. Normotensive bowel sounds x4. Percussion tympanic. Palpation soft, nontender in all four quadrants. No organomagely. Absent rigidity, guarding, or rebound. Musculoskeletal/Extremities: No erythema, swelling, tenderness of any joints. 2+ edema of LLE and 1+ edema of RLE. DP pulses +2/3 b/l. Full active ROM of all four extremities. Neurologic: NEURO: Oriented x3, cranial nerves II to XII grossly intact. Muscle strength 5/5 on UE and LE b/l, Moves extremities x4. Sensation intact to gross touch along C6-T1 and L2-S1 dermatomes. No focal neurologic deficits noted Psych: Thoughts linear and responses appropriate. Objective Labs 05/07/25 04:55 05/07/25 04:55 Labs: Laboratory Results - last 24 hr 05/05/25 05/06/25 19:39 03:41 WBC 6.3 RBC 4.00 L Hgb 12.2 L Hct 38.0 L MCV 95 MCH 30.5 MCHC 32.1 RDW Std Deviation 50.4 H Plt Count 101 L Neut % (Auto) 59 Lymph % (Auto) 28 [place] % (Auto) 9 Eos % (Auto) 3 Baso % (Auto) 1 Neut # (Auto) 3.7 Lymph # (Auto) 1.8 [place] # (Auto) 0.6 Eos # (Auto) 0.2 Baso # (Auto) 0.0 Immature Gran # (Auto) 0.01 H Absolute Nucleated RBC 0.00 Immature Gran % 0 Nucleated RBC % 0 PT 10.3 INR 1.0 APTT 66.6 H D 77.9 H D Sodium 141 Potassium 4.1 Chloride 104 Carbon Dioxide 27.5 Anion Gap 10 BUN 16 Creatinine 1.2 Estim Creat Clear Calc 116.5 eGFR > 60 BUN/Creatinine Ratio 13 Glucose 207 H Calculated Osmolality 288 Calcium 9.4 Corrected Calcium 9.4 Phosphorus 2.9 Magnesium 1.9 Total Bilirubin 0.6 AST 35 H ALT 17 Alkaline Phosphatase 109 Total Protein 6.0 Albumin 4.0 Globulin 2.0 L Albumin/Globulin Ratio 2.0 Quality Measures Quality Measures VTE prophylaxis Advance care planning discussed with:: patient Assessment & Plan Assessment Current Active Medications: Generic Name Dose Route Start Last Admin Trade Name Freq PRN Reason Stop Dose Admin Acetaminophen 650 mg 05/04/25 17:37 Acetaminophen 325 Mg Tablet PO 06/03/25 17:36 Q6H PRN Fever >101.5 Acetaminophen 650 mg 05/04/25 17:37 Acetaminophen 325 Mg Tablet PO 06/03/25 17:36 Q6H PRN PAIN SCALE 1-3 (mild Hydrocodone Bitart/Acetaminophen 1 tab 05/05/25 17:05 05/05/25 19:04 Hydrocodone/Apap 5/325 Tablet PO 05/09/25 18:10 1 tab Q6HR PRN Administration PAIN SCALE 4-10(Mod-Sev Protocol Aspirin 81 mg 05/05/25 09:00 05/06/25 08:02 Aspirin Ec 81 Mg Tabec PO 06/04/25 08:59 81 mg QDAY EAN Administration Atorvastatin Calcium 80 mg 05/05/25 21:00 05/05/25 20:15 Atorvastatin Calcium 20 Mg Tablet PO 06/04/25 20:59 80 mg HS EAN Administration Clopidogrel Bisulfate 75 mg 05/05/25 09:00 05/06/25 08:02 Clopidogrel Bisulfate 75 Mg Tablet PO 06/04/25 08:59 75 mg QDAY EAN Administration Dextrose 25 ml 05/04/25 20:48 Dextrose 50%-Water Inj 50 Ml Syringe IV 06/03/25 20:47 Q15MIN PRN BG 50-70 responsive npo pt Dextrose 50 ml 05/04/25 20:48 Dextrose 50%-Water Inj 50 Ml Syringe IV 06/03/25 20:47 Q15MIN PRN BG <50 OR BG <70 & pt unresponsive Furosemide 20 mg 05/05/25 10:15 05/06/25 14:49 Furosemide 20 Mg Tablet PO 06/04/25 10:14 20 mg QDAY EAN Administration Glucagon 1 mg 05/04/25 20:48 Glucagon Inj 1 Mg Vial IM Q15MIN PRN BG <70, and no IV access Insulin Human Lispro 0 unit 05/05/25 07:30 05/06/25 14:30 Insulin Lispro (Admelog) 1 Unit/0.01 Ml Unit SC 06/04/25 07:29 Not Given AC [facility] Protocol Sodium Chloride 1 spray 05/05/25 12:00 Saline Nasal 45 Ml Btl NASAL 06/04/25 11:59 PRN PRN CONGESTION Plan 74-year-old male?with PMHx of CAD s/p stent 14yo, hyperlipidemia, hypertension, and type 2 diabetes mellitus, for which he is on Ozempic,?presented on 05/04/2025 with chest pain and tight feeling in his throat. Admitted for Inpatient treatment of NSTE-ACS. #NSTEMI Type I s/p PCI 05/06/2025 #CAD s/p stent placement #Chest Pain, resolved #ACS, resolved Patient presented with tight feeling in his throat and pressure-like chest pain, which had persisted overnight. EKG showed sinus rhythm, rate 72, ST depressions in lead II, aVF, and V2-V6. Troponin i 0.022 -> 0.510 -> 0.800 . Patient reports stent placed 14 years ago, for which he is on clopidogrel daily at home. On 05/05/2025 trop kept trending up to 3.327, 5.7 (peak), before trending down to 5.606. Echo demonstrated normal LV size and function. estimated EF 50 -55%. There is grade 1 diastolic dysfunction. Patient underwent routine angiography with PCI by Dr. Joseph on 05/06: - LAD in the mid to distal region is occluded 100% at this side the vessel is rather small - Right coronary is a dominant vessel that has a 99% occlusion distally, beyond that the posterolateral branch appears to have a stent. The stent is chronically occluded - Posterior descending artery appears to have a stent. stent appears to be widely patent, proximal to the stent there is a 50 to 60% stenosis noted Plan: - Cardiology, Dr Joseph consulted, appreciate recs - s/p successful angioplasty and stent placement to distal RCA - Aspirin PO 324mg to chew (loading dose); followed by aspirin 81mg daily - Clopidogrel PO 300mg (loading dose); followed by Plavix 75 mg p.o. daily - Atorvastatin PO 80mg - Maintain K+ >4 and Mg >2 - Continuous pulse oxometry - Strict I&O - Admit to Telemetry - O2 delivery through NC 2L PRN #T2DM Hgb A1c 8.3 ? Insulin sliding scale AC #HTN Patient reports being lisinopril QAM and amlodipine QHS at home BP without hospital meds is within normal limitis, will add home meds one at a time should pt develop hypertension during his stay. Patient noted to have bilateral lower extremity edema on physical exam. ?Lasix 20 mg daily #Hyperlipidemia TG 165, CH 146, LDL 75, HDL 38 ?Patient on atorvastatin p.o. 80 mg daily This case was discussed with my attending physician, Dr. Valencia , and senior resident, Dr Galaviz. Even though this this note was carefully revised there may still be minor errors in turkey farmer due to voice recognition software. Joann Beyer DO PGY I Attending Provider Attestation/Addendum I, Khloe Valencia DO, attest that I was physically present for the mullins portions of the service and evaluated the patient with the resident and I reviewed and discussed the case with the resident and agree with the resident's findings and plans of care as documented above Patient seen and evaluated this afternoon following cardiac cath. Patient states he is feeling well and denies any shortness of breath or chest pain. Patient remains on DAPT as stent was placed in distal RCA. Distal LAD is 100% occluded, but no interventions. Will monitor pt overnight and anticipate DC within next 24h if patient remains stable.
[2025-05-06] MEDS: ATORVASTATIN CALCIUM 20 MG TABLET 80 MG PO (20:46)
[2025-05-07] VITALS: BP 153/68; PULSE 59; PULSE 61; RESP 14; TEMP 36.1; O2SAT 97
[2025-05-07 04:00] VITALS: BP 133/70; PULSE 59; PULSE 63; RESP 15; TEMP 36.1; O2SAT 95
[2025-05-07 05:40] LABS: Basophils # (Auto) 0.0 Thou/mm3 (0.0-0.2); Basophils % (Auto) 0 % (0-2.5); Eosinophils # (Auto) 0.1 Thou/mm3 (0.0-0.5); Eosinophils % (Auto) 2 % (0-10); Hematocrit 37.9 % (41.0-53.0); Hemoglobin 12.2 g/dL (13.5-16.0); Immature Granulocytes Auto 0.03 Thou/mm3 (0.00-0.00); Lymphocytes # (Auto) 1.3 Thou/mm3 (1.0-4.8); Lymphocytes % (Auto) 22 % (10-50); Mean Corpuscular HGB Conc 32.2 g/dl (31.0-37.0); Mean Corpuscular Hemoglobin 30.9 pg (25.0-35.0); Mean Corpuscular Volume 96 fL (80-100); Monocytes # (Auto) 0.5 Thou/mm3 (0.0-0.8); Monocytes % (Auto) 8 % (0-12); Neutrophils # (Auto) 3.9 Thou/mm3 (1.8-7.7); Neutrophils % (Auto) 67 % (37-80); Nucleated Red Blood Cell # 0.00 Thou/mm3 (0.00-0.00); Nucleated Red Blood Cell % 0 /100 WBC (0); Platelet Count 102 Thou/mm3 (140-440); RDW Standard Deviation 50.9 fL (35.1-43.9); Red Blood Count 3.95 Miln/mm3 (4.50-5.90); White Blood Count 5.9 Thou/mm3 (3.8-10.6)
[2025-05-07 05:56] VITALS: BMI 35.7
[2025-05-07 06:08] LABS: Partial Thromboplastin Time 31.3 Seconds (22.0-36.0)
[2025-05-07 06:16] LABS: Alanine Aminotransferase 16 U/L (10-49); Albumin, Serum 4.1 gm/dL (3.4-4.8); Albumin/Globulin Ratio 2.1 (1.2-2.2); Alkaline Phosphatase 102 U/L (46-116); Anion Gap 8 (7-16); Aspartate Amino Transferase 33 U/L (0-34); BUN/Creatinine Ratio 12 Ratio (12-20); Bilirubin,Total 0.6 mg/dL (0.3-1.2); Blood Urea Nitrogen 14 mg/dL (9-23); Calcium 9.0 mg/dL (8.3-10.6); Calcium (Corrected) 9.0 mg/dL (8.5-10.1); Carbon Dioxide 27.9 mMol/L (20.0-31.0); Chloride 106 mMol/L (98-107); Creatinine (Component) 1.2 mg/dL (0.6-1.3); Estimated Creatinine Clearance 72.1 mL/min (>60); Globulin 2.0 gm/dL (2.3-3.5); Glucose 194 mg/dL (74-106); Magnesium 2.0 mg/dL (1.6-2.6); Osmolality,Calculated 288 (275-295); Phosphorous 2.5 mg/dL (2.4-5.1); Potassium 4.4 mMol/L (3.4-5.1); Sodium 142 mMol/L (136-145); Total Protein 6.1 gm/dL (5.7-8.2); eGFR > 60 See Note
[2025-05-07 07:07] VITALS: PULSE 58; RESP 19; RESP 96
[2025-05-07 08:00] VITALS: BP 155/76; PULSE 55; RESP 20; TEMP 36.2; O2SAT 97
[2025-05-07 09:14] VITALS: BP 155/76; PULSE 55
[2025-05-07] MEDS: CLOPIDOGREL BISULFATE 75 MG TABLET PO (09:14)
[2025-05-07] MEDS: ASPIRIN EC 81 MG TABEC PO (09:14)
[2025-05-07] MEDS: INSULIN LISPRO (AdmeLOG) 1 UNIT/0.01 ML UNIT SC (09:14)
[2025-05-07 12:00] VITALS: BP 150/67; PULSE 60; PULSE 62; RESP 20; TEMP 36.2; O2SAT 96
--- NOTE | 2025-05-07 12:12 | ESPR_ITS ---
Documentation for date of: 05/07/25 Subjective Subjective Interval history: Patient's status post PCI No chest pain Exam Vital Signs Temp Pulse Resp BP Pulse Ox O2 Del Method O2 Flow Rate 97.1 F 55 L 20 155/76 H 97 Room Air 2 05/07/25 08:00 05/07/25 09:14 05/07/25 08:00 05/07/25 09:14 05/07/25 08:00 05/07/25 08:00 05/06/25 08:20 FiO2 97 05/06/25 14:15 Routine HEENT Exam Head: Present normocephalic and atraumatic Eye: Present EOMI and PERRL ENT: Present mucous membranes moist Routine Neck Exam Neck: Present supple and trachea midline Routine Respiratory Exam Respiratory: Present chest non-tender, lungs clear, normal breath sounds and no resp distress Routine Cardiovascular Exam Cardiovascular: Present RRR Routine Abdominal Exam Abdominal: Present soft and normoactive bowel sounds Routine Extremities Exam Extremities: Present full ROM Routine Skin Exam Skin: Present intact, dry and warm Routine Neurological Exam Neurological: Present alert, oriented X3 and CN II-XII intact Routine Psychiatric Exam Psychiatric: Present normal affect and normal thought process Objective Labs 05/07/25 04:55 05/07/25 04:55 Labs: Laboratory Results - last 24 hr 05/07/25 04:55 WBC 5.9 RBC 3.95 L Hgb 12.2 L Hct 37.9 L MCV 96 MCH 30.9 MCHC 32.2 RDW Std Deviation 50.9 H Plt Count 102 L Neut % (Auto) 67 Lymph % (Auto) 22 [place] % (Auto) 8 Eos % (Auto) 2 Baso % (Auto) 0 Neut # (Auto) 3.9 Lymph # (Auto) 1.3 [place] # (Auto) 0.5 Eos # (Auto) 0.1 Baso # (Auto) 0.0 Immature Gran # (Auto) 0.03 H Absolute Nucleated RBC 0.00 Immature Gran % 1 H Nucleated RBC % 0 APTT 31.3 D Sodium 142 Potassium 4.4 Chloride 106 Carbon Dioxide 27.9 Anion Gap 8 BUN 14 Creatinine 1.2 Estim Creat Clear Calc 72.1 eGFR > 60 BUN/Creatinine Ratio 12 Glucose 194 H Calculated Osmolality 288 Calcium 9.0 Corrected Calcium 9.0 Phosphorus 2.5 Magnesium 2.0 Total Bilirubin 0.6 AST 33 ALT 16 Alkaline Phosphatase 102 Total Protein 6.1 Albumin 4.1 Globulin 2.0 L Albumin/Globulin Ratio 2.1 Assessment & Plan A&P Narrative Status post PCI Continue on DAPT Okay for discharge Time Spent With Patient Time: Total time spent is greater than 50% in coordination of care (as documented) at patient's floor/unit and/or counseling patient:
--- NOTE | 2025-05-07 15:16 | ESDS_ITS ---
<Statement entered by Khloe Valencia DO - 05/08/25 07:43> I, Khloe Valencia DO, attest that I was physically present for the mullins portions of the service and evaluated the patient with the resident and I reviewed and discussed the case with the resident and agree with the resident's findings and plans of care as documented above Patient is s/p stent placement of RCA. No further episodes of chest pain or shortness of breath. Patient reports feeling well. Mild LE edema noted in b/l LE. Discussed importance of continuing DAPT to prevent in-stent restenosis. Patient verbalized understanding and will follow up with Dr. Jake blackwell. Discussed discontinuation of pioglitazone with patient as it may cause worsening fluid overload in the setting of heart failure. All questions and concerns were addressed to patient's satisfaction. <Statement entered by Prachi Galaviz MD - 05/07/25 20:37> Patient was seen and examined by me personally. I have reviewed the below documentation by the team resident and agree with its findings. Discharge plan was discussed with the attending, Dr. Joann Strickland MD Internal Medicine, PGY-2 Planned Discharge Date 05/07/25 DS: Providers Provider Date of admission: 05/04/25 17:50 Primary care physician: Neil Rainey MD Admitting Provider: William Luis MD Attending Provider on Admission: Khloe Valencia DO Consults: 05/04/25 17:30 Consult to Cardiology Stat Comment: Consulting Provider: Carmen Joseph Attending Provider on DC: Khloe Valencia DO Discharging Provider: Joann Beyer DO DS: Diagnosis Problem List Completed Was Problem List Reviewed/Reconciled?: Yes Hospital Course Hospital Course Hospital course: 74-year-old male?with PMHx of CAD s/p stent 14yo, hyperlipidemia, hypertension, and type 2 diabetes mellitus, for which he is on Ozempic,?presented on 05/04/2025 with chest pain and tight feeling in his throat. He describes the chest pain as a pressure-like sensation, which radiates to bilateral shoulders. On presentation, VSS 154/65, HR 78, RR 14, T97.3, O2 98% in RA.? Labs showed WBC 6.3, Hgb 13.2, CMP glucose 152, ALP 154, troponin 0.022 which trended up to 0.510, and BNP 173.?TG 165, CH 146, LDL 75, HDL 38. EKG showed sinus rhythm, rate 72, ST depression in lead 2, AVF, and V2-V6? Workup initiated for cardiac versus noncardiac cause.?[employer], , consulted for elevated troponins who recommended treatment per ACS protocol with unfractionated heparin, loading doses of aspirin and clopidogrel, atorvastatin, and metoprolol x 1. Echo demonstrated normal LV size and function. estimated EF 50 -55%. There is grade 1 diastolic dysfunction. Despite pharmacologic treatment, troponins kept elevating 3.327, 5.7 (peak), before trending down to 5.606. Decision was made for routine angiography on 05/06 with the below findings: - LAD in the mid to distal region is occluded 100% at this side the vessel is rather small - Right coronary is a dominant vessel that has a 99% occlusion distally, beyond that the posterolateral branch appears to have a stent. The stent is chronically occluded - Posterior descending artery appears to have a stent. stent appears to be widely patent, proximal to the stent there is a 50 to 60% stenosis noted. Patient received angioplasty and stent placement to the distal RCA on 05/06/2025. By the next morning, patient's presenting symptoms of chest and neck pain and tightness had been resolved for 2 days. labs remained unremarkable other than elevated diabetic range glucose (hemoglobin A1c 8.3), which was treated with insulin sliding scale AC. Patient weaned to room air. At the time of discharge, patient is medically stable and deemed safe to return to his/her previous state of living. Admission diagnosis: #NSTEMI Type I #CAD s/p PCI with stent placement in distal RCA 05/06/2025 #Chest Pain, resolved #ACS, resolved #T2DM #HTN #Hyperlipidemia Discharge instructions: - You were admitted to the hospital for chest pain, you were found to have a myocardial infarction, you had a stent placed in your right coronary artery. - Your ejection fraction is 55%, we will be discharging you on aspirin and Plavix it is very important that you take your aspirin and Plavix daily for at least 1 year or as per cardiology recommendations - We have stopped amlodipine, hold your nifedipine as your blood pressure should be normal with lisinopril, follow-up with your certified public accountant for titration of hypertension medication. - Stop pioglitazone as it can cause fluid retention, take metformin 500 twice a day as prescribed below - Other medications as below. - Follow-up with your certified public accountant within 1 week. Follow-up with your primary care physician within 1 week. - We recommend that you obtain a sleep study outpatient - Return to emergency department if your symptoms worsen This case was discussed with my attending physician, Dr. Valencia, and senior resident, Dr Galaviz. Even though this this note was carefully revised there may still be minor errors in process steward due to voice recognition software. Joann Beyer, DO PGY I ? Time Spent with Patient Time attestation: Total time spent providing and/or coordinating discharge services: More than 50% of the total patient's total hospital stay Time spent: Greater than 30 minutes Exam Vital Signs Temp Pulse Resp BP Pulse Ox O2 Del Method O2 Flow Rate 97.1 F 62 20 150/67 H 96 Room Air 2 05/07/25 12:00 05/07/25 12:00 05/07/25 12:00 05/07/25 12:00 05/07/25 12:00 05/07/25 12:00 05/06/25 08:20 FiO2 97 05/06/25 14:15 Narrative Exam General: Alert and oriented x3, No apparent distress. Obesity. Skin: Intact, Warm, no rashes. HEENT: Normocephalic, Atraumatic. Normal neck range of motion, Supple. Trachea midline. Respiratory: Lungs are clear to auscultation. Breath sounds are equal bilaterally with good, symmetric chest expansion. Cardiovascular: RRR, normal S1, S2, No murmurs. Distal pulses 2+ Abdomen: Abdomen non-distended, without erythema, or lesions. Normotensive bowel sounds x4. Percussion tympanic. Palpation soft, nontender in all four quadrants. No organomagely. Absent rigidity, guarding, or rebound. Musculoskeletal/Extremities: No erythema, swelling, tenderness of any joints. 1+ edema of BLE. DP pulses +2/3 b/l. Full active ROM of all four extremities. Neurologic: NEURO: Oriented x3, cranial nerves II to XII grossly intact. Muscle strength 5/5 on UE and LE b/l, Moves extremities x4. Sensation intact to gross touch along C6-T1 and L2-S1 dermatomes. No focal neurologic deficits noted Psych: Thoughts linear and responses appropriate. Discharge Plan Plan Patient Disposition: HOME (Self Care) Patient condition on transfer: Stable Care Plan Goals: - You were admitted to the hospital for chest pain, you were found to have a myocardial infarction, you had a stent placed in your right coronary artery. - Your ejection fraction is 55%, we will be discharging you on aspirin and Plavix it is very important that you take your aspirin and Plavix daily for at least 1 year or as per cardiology recommendations - We have stopped amlodipine, hold your nifedipine as your blood pressure should be normal with lisinopril, follow-up with your certified public accountant for titration of hypertension medication. - Stop pioglitazone as it can cause fluid retention, take metformin 500 twice a day as prescribed below - Other medications as below. - Follow-up with your certified public accountant within 1 week. Follow-up with your primary care physician within 1 week. - We recommend that you obtain a sleep study outpatient - Return to emergency department if your symptoms worsen Prescriptions/Referrals Prescriptions/Med Rec: New metformin 500 mg tablet 500 mg PO BID Qty: 60 0RF Continued furosemide 20 mg tablet 20 mg PO QDAY Patient Comments: TAKE 1 TABLET BY MOUTH ONCE DAILY atorvastatin 40 mg tablet 40 mg PO QDAY Patient Comments: TAKE 1 TABLET BY MOUTH ONCE DAILY lisinopril 40 mg tablet 40 mg PO QDAY Patient Comments: TAKE 1 TABLET BY MOUTH ONCE DAILY (DME) pen needle, diabetic [Libra 2nd Gen Pen Needle] 32 gauge x 5/32 needle Patient Comments: USE 1 PEN NEEDLE ONCE DAILY Ozempic 0.25 mg or 0.5 mg (2 mg/3 mL) pen injector 0.25 mg SUBCUT .week Patient Comments: INJECT 0.25MG SUBCUTANEOUSLY ONCE A WEEK insulin glargine [Lantus Solostar U-100 Insulin] 100 unit/mL (3 mL) insulin pen 15 unit subcut HS potassium chloride 8 mEq capsule, extended release 8 meq PO QDAY loratadine 10 mg tablet 10 mg PO DAILY Patient Comments: TAKE 1 TABLET BY MOUTH ONCE DAILY clopidogrel 75 mg tablet 75 mg PO QDAY 30 Days Qty: 30 0RF aspirin 81 mg tablet,delayed release (DR/EC) 81 mg PO QDAY 30 Days Qty: 30 0RF Held nifedipine 60 mg tablet extended release 60 mg PO QDAY Hold Instructions: Resume on 05/14/25. Follow-up with cardiology before resuming Discontinued amlodipine 10 mg tablet 10 mg PO .pm Patient Comments: TAKE 1 TABLET BY MOUTH ONCE DAILY naproxen 375 mg tablet 375 mg PO DAILY PRN (Reason: pain) Patient Comments: TAKE 1 TABLET BY MOUTH DAILY with food pioglitazone-metformin 15-500 mg tablet 1 tab PO BID Patient Comments: TAKE 1 TABLET BY MOUTH twice daily FOR DIABETES Referrals: Neil Rainey MD [Primary Care Provider, Family Practice] Carmen Joseph MD [Physician, Cardiology] Patient/Caregiver Discharge Instructions Discharge Activity: activity as tolerated Education Materials: Diabetes: Caring for Your Body, CAD Print Language: Ukrainian Stand Alone Forms: Lissa Award Info., Patient Portal Info Letter Discharge Order Discharge Orders: Discharge (Routine); Ordered 05/07/25 Ordered By: Prachi Galaviz Quality Discharge Quality Measures VTE prophylaxis
== END 2025-05-07 12:32 | disposition home or self-care (01) | DRG 322 ==
LOC: SERX 16:35 → SERHOLD 17:51 → S2NX 20:14
PROVIDERS: Internal Medicine; Admitting Provider Student in an Organized Health Care Education/Training Program; Emergency Provider Emergency Medicine; PCP Family Medicine; Visit Provider Internal Medicine
PROC: 02703DZ Dilation of Coronary Artery, One Artery with Intraluminal Device, Percutaneous Approach (ICD-10-PCS; principal; 2025-05-06 10:00)
DX: I21.4 Non-ST elevation (NSTEMI) myocardial infarction (principal); I25.10 Atherosclerotic heart disease of native coronary artery without angina pectoris; I10 Essential (primary) hypertension; E11.9 Type 2 diabetes mellitus without complications; G47.33 Obstructive sleep apnea (adult) (pediatric); E78.5 Hyperlipidemia, unspecified; Z95.5 Presence of coronary angioplasty implant and graft; E78.00 Pure hypercholesterolemia, unspecified; Z79.02 Long term (current) use of antithrombotics/antiplatelets; Z79.82 Long term (current) use of aspirin; Z79.84 Long term (current) use of oral hypoglycemic drugs; Z79.85 Long-term (current) use of injectable non-insulin antidiabetic drugs; Z79.899 Other long term (current) drug therapy
CPT/HCPCS: 36415; 71045; 80053; 80061; 83036; 83690; 83735; 83880; 84100; 84443; 84484; 85025; 85610; 85730; 93005; 93306; 94660; 99152; 99153; 99284; A4649; C1725; C1769; C1874; C1887; C1894; J0153; J0168; J0282; J0461; J0583; J1643; J1644; J1815; J2250; J2312; J2371; J3010; J3490; Q9967; A9270; J2305